=== PATIENT | male | born 1960 | race Caucasian/White ===

== ENCOUNTER 2016-09-14 11:10 | Inpatient (IN) | payer OTHER ==
[~2016-09-14] VITALS: Ht 182.9 cm; Wt 112.3 kg
[2016-09-14] VITALS (14 sets, daily range): BP systolic 92–159; BP diastolic 47–79; PULSE 72–126; RESP 16–17; TEMP 98–99.5; O2SAT 99–100
[~2016-09-14 11:10] MED LIST: APIDINJ SQ; Blood Pressure PO; Cholesterol PO; GLUC1000 PO; LANTUS2P SC
[2016-09-14] MEDS: ETOMIDATE 40 MG/20 ML VIAL ONE ×2 (11:15→11:34)
[2016-09-14] MEDS ORDERED: SUCCINYLCHOLINE CHLORIDE 200 MG/10 ML VIAL ONE (11:15)
[2016-09-14] MEDS ORDERED: PROPOFOL 500 MG/50 ML INJ 50 ML ONE (11:22)
[2016-09-14] MEDS ORDERED: ASPIRIN 81 MG CHEW TAB OG-TUBE STA (11:31)
[2016-09-14] MEDS ORDERED: HEPARIN SODIUM - IV 10,000 UNITS/10 ML VIAL IV STA (11:31)
[2016-09-14] MEDS ORDERED: HEPARIN-NS/PF INJ 500 ML ONE (11:38)
[2016-09-14] MEDS ORDERED: SUCCINYLCHOLINE CHLORIDE 200 MG/10 ML VIAL IV PUSH ONE (11:45)
[2016-09-14] MEDS ORDERED: PROPOFOL 1000 MG/100 ML INJ 100 ML IV SCH (11:45)
[2016-09-14 11:53] LABS: I-STAT POTASSIUM 3.7 MMOL/L (3.5-4.9); I-STAT SODIUM 137 MMOL/L (138-146)
[2016-09-14 11:54] LABS: AUTOMATED NEUTROPHIL # 11.5 TH/MM3 (1.8-7.7); BASOPHIL # 0.1 TH/MM3 (0-0.2); BASOPHIL % 0.5 % (0.0-2.0); EOSINOPHIL # 0.4 TH/MM3 (0-0.4); EOSINOPHIL % 2.3 % (0.0-4.0); HEMO FLAGS DIFF FINAL; LYMPH % 20.7 % (9.0-44.0); LYMPHOCYTE # 3.7 TH/MM3 (1.0-4.8); MEAN CELL VOLUME 82.1 FL (80.0-100.0); MEAN CORPUSCULAR HEMOGLOBIN 27.4 PG (27.0-34.0); MEAN CORPUSCULAR HGB CONC 33.4 % (32.0-36.0); MONO % 11.7 % (0.0-8.0); NEUT % 64.8 % (16.0-70.0); PLATELET COUNT 264 TH/MM3 (150-450); RED BLOOD COUNT 4.51 MIL/MM3 (4.50-5.90); RED CELL DISTRIBUTION WIDTH 19.8 % (11.6-17.2); WHITE BLOOD COUNT 17.7 TH/MM3 (4.0-11.0)
--- NOTE | 2016-09-14 11:59 | RADRPT ---
EXAM DATE/TIME: 09/14/2016 11:40 [facility] COMPARISON: No previous studies available for comparison. INDICATIONS : Stemi-alert. MEDICAL HISTORY : Unobtainable. SURGICAL HISTORY : Unobtainable. ENCOUNTER: Initial ACUITY: 1 day PAIN SCORE: Non-responsive. LOCATION: Bilateral chest FINDINGS: ET tube terminating above the ap a nasogastric tube is in the midline into the stomach. Hypoaerat ion is appreciated with a suggestion of left perihilar prominent bronchovascular markings CONCLUSION: . ET tube above the ap . Suggestion of prominent left perihilar bronchovascular markings particularly retrocardiac which cou ld represent minimal infiltrate or atelectasis. Vasquez Gonzalez MD on September 14, 2016 at 11:56 Board Certified Radiologist. This report was verified electronically.
--- NOTE | 2016-09-14 12:03 | RADRPT ---
EXAM DATE/TIME: 09/14/2016 11:52 [facility] COMPARISON: No previous studies available for comparison. INDICATIONS : Post fall,post CPR,now patient is combative. RADIATION DOSE: 43.15 CTDIvol (mGy) MEDICAL HISTORY : Unable to obtain SURGICAL HISTORY : Unable to obtain ENCOUNTER: Initial ACUITY: 1 day PAIN SCALE: Non-responsive LOCATION: cranial TECHNIQUE: Multiple contiguous axial images were obtained of the head. Using automated exposure control and adj ustment of the mA and/or kV according to patient size, radiation dose was kept as low as reasonably a chievable to obtain optimal diagnostic quality images. FINDINGS: CEREBRUM: The ventricles are normal for age. No evidence of midline shift, mass lesion, hemorrhage or acute in farction. No extra-axial fluid collections are seen. POSTERIOR FOSSA: The cerebellum and brainstem are intact. The 4th ventricle is midline. The cerebellopontine angle i s unremarkable. EXTRACRANIAL: The visualized portion of the orbits is intact. SKULL: The calvaria is intact. No evidence of skull fracture. CONCLUSION: Normal examination. Vasquez Gonzalez MD on September 14, 2016 at 12:01 Board Certified Radiologist. This report was verified electronically.
[2016-09-14 12:04] LABS: APTT (PATIENT) 24.5 SEC (24.3-30.1); PROTHROMBIN TIME - PATIENT 11.1 SEC (9.8-11.6)
[2016-09-14 12:10] LABS: MAGNESIUM 2.1 MG/DL (1.5-2.5)
[2016-09-14 12:13] LABS: CREATINE KINASE 136 U/L (39-308)
--- NOTE | 2016-09-14 12:15 | PD ---
HPI Chief Complaint: Code Blue Time Seen by Provider: 11:28 Travel History International Travel<30 days: No Contact w/Intl Traveler<30days: No Traveled to known affect area: No History of Present Illness HPI 56yo M with PMH of DM, CHF was brought in by [facility] s/p vfib arrest. As per [facility] , pt was at work and they heard him face forward. Pt loses pulses and CPR was initiated. [facility] continued CPR when they got there and placed him on monitor which showed vfib so they defibrillated him and obtained ROSC. Pt was given etomidate and ativan because he was starting to be combative but did not have an airway. Pt moving all extremities but not speaking and has blood on his face. Pt given succinylcholine and intubated emergently. Pt had EKG from [facility] that showed ST segment elevation V1, V2. ST depression II, V4-V6. Repeat EKG in the ED showed ST segment elevation III, aVF. ST depression V5-V6. PVC. PFSH Past Medical History Medical History: Unable to Obtain Tetanus Vaccination: Unknown Past Surgical History Surgical History: Unable to Obtain Social History Alcohol Use: No (UNABLE TO OBTAIN ) Tobacco Use: No (UNABLE TO OBTAIN ) Substance Use: No (UNABLE TO OBTAIN ) Allergies-Medications (Allergen,Severity, Reaction): Coded Allergies: No Known Allergies (Unverified , 09/14/16) Reported Meds & Prescriptions Reported Meds & Active Scripts Active Active Prescriptions or Reported Medications Unobtainable Review of Systems ROS Limitations: Unresponsive Physical Exam Narrative GENERAL: Middle age male unresponsive. SKIN: Warm and dry. HEAD: Dry blood on face. EYES: Pupils 3mm and reactive bilaterally. ENT: No nasal bleeding or discharge. Mucous membranes pink and moist. NECK: Trachea midline. No JVD. CARDIOVASCULAR: Regular rate and rhythm. No murmur appreciated. RESPIRATORY: No accessory muscle use. Clear to auscultation. Breath sounds equal bilaterally. GASTROINTESTINAL: Abdomen soft, distended. MUSCULOSKELETAL: No obvious deformities. No clubbing. No cyanosis. No edema. NEUROLOGICAL: Unresponsive but moving all extremities. Data Data Last Documented VS Vital Signs Date Time Temp Pulse Resp B/P Pulse Ox O2 Delivery O2 Flow Rate FiO2 09/14/16 12:15 100 100 09/14/16 11:58 80 16 113/66 Auto-Vent Orders Etomidate Inj (Amidate Inj) (09/14/16 11:15) Succinylcholine Inj (Quelicin Inj) (09/14/16 11:15) Propofol 500 Mg/50 Ml Inj (Diprivan 500 (09/14/16 11:22) Chest, Single Ap (09/14/16 ) Troponin I (09/14/16 11:31) Ckmb (Isoenzyme) Profile (09/14/16 11:31) Complete Blood Count With Diff (09/14/16 11:31) I-Stat Profile (09/14/16 11:31) I-Stat Creatinine (09/14/16 11:31) Calcium (09/14/16 11:31) Magnesium (Mg) (09/14/16 11:31) Prothrombin Time / Inr (Pt) (09/14/16 11:31) Act Partial Throm Time (Ptt) (09/14/16 11:31) Oxygen Administration (09/14/16 11:31) Iv Access Insert/Monitor (09/14/16 11:31) Oximetry (09/14/16 11:31) Aspirin Chew (Aspirin Chew) (09/14/16 11:31) Heparin Inj (Heparin Inj) (09/14/16 11:31) Heparin-Ns/Pf Inj (Heparin-Ns/Pf Inj) (09/14/16 11:38) Restraints Non-Violent KULWINDER.Q3H (09/14/16 11:38) Propofol 1000 Mg/100 Ml Inj (Diprivan 10 (09/14/16 11:45) ^ Infusion (09/14/16 11:38) RASS (09/14/16 11:38) Neurological Rass Scale KULWINDER.Q2H (09/14/16 11:38) Succinylcholine Inj (Quelicin Inj) (09/14/16 11:45) Ct Brain W/O Iv Contrast(Rout) (09/14/16 ) Ct Facial Bones W/O Iv Cont (09/14/16 ) Ct Cerv Spine W/O Contrast (09/14/16 ) Phenyleph/Ns 1000 Mcg/10ml Syr (Neosynep (09/14/16 12:16) Bivalirudin Inj (Angiomax Inj) (09/14/16 12:22) Admit Order (Ed Use Only) (09/14/16 12:23) CKMB (09/14/16 11:30) CKMB% (09/14/16 11:30) Labs Laboratory Tests Test 09/14/16 11:30 White Blood Count 17.7 TH/MM3 Red Blood Count 4.51 MIL/MM3 Hemoglobin 12.3 GM/DL Bedside Hemoglobin 12.6 G/DL Hematocrit 37.0 % Bedside Hematocrit 37.0 % Mean Corpuscular Volume 82.1 FL Mean Corpuscular Hemoglobin 27.4 PG Mean Corpuscular Hemoglobin 33.4 % Concent Red Cell Distribution Width 19.8 % Platelet Count 264 TH/MM3 Mean Platelet Volume 8.6 FL Neutrophils (%) (Auto) 64.8 % Lymphocytes (%) (Auto) 20.7 % Monocytes (%) (Auto) 11.7 % Eosinophils (%) (Auto) 2.3 % Basophils (%) (Auto) 0.5 % Neutrophils # (Auto) 11.5 TH/MM3 Lymphocytes # (Auto) 3.7 TH/MM3 Monocytes # (Auto) 2.1 TH/MM3 Eosinophils # (Auto) 0.4 TH/MM3 Basophils # (Auto) 0.1 TH/MM3 CBC Comment DIFF FINAL Differential Comment Prothrombin Time 11.1 SEC Prothromb Time International 1.0 RATIO Ratio Activated Partial 24.5 SEC Thromboplast Time Bedside Sodium 137 MMOL/L Bedside Potassium 3.7 MMOL/L Bedside Chloride 95 MMOL/L Bedside Blood Urea Nitrogen 27 MG/DL Bedside Creatinine 1.4 MG/DL Bedside Glucose 201 MG/DL Calcium Level 8.6 MG/DL Magnesium Level 2.1 MG/DL Total Creatine Kinase 136 U/L Creatine Kinase MB 1.5 NG/ML Troponin I 1.18 NG/ML MDM Medical Decision Making Medical Screen Exam Complete: Yes Emergency Medical Condition: Yes Interpretation(s) Last Impressions Maxillofacial CT 09/14/16 0000 Signed Impressions: Service Date/Time: Wednesday, September 14, 2016 11:52 - CONCLUSION: No acute bony injury Vasquez Gonzalez MD Head CT 09/14/16 0000 Signed Impressions: Service Date/Time: Wednesday, September 14, 2016 11:52 - CONCLUSION: Normal examination. Vasquez Gonzalez MD Chest X-Ray 09/14/16 0000 Signed Impressions: Service Date/Time: Wednesday, September 14, 2016 11:40 - CONCLUSION: . ET tube above the ap . Suggestion of prominent left perihilar bronchovascular markings particularly retrocardiac which could represent minimal infiltrate or atelectasis. Vasquez Gonzalez MD Cervical Spine CT 09/14/16 0000 Signed Impressions: Service Date/Time: Wednesday, September 14, 2016 11:52 - CONCLUSION: Degenerative change. No acute bony injury. Vasquez Gonzalez MD Differential Diagnosis Acute NC vs. ICH vs. PE Narrative Course Middle age male s/p vfib arrest and defibrillation x1 in the field was emergently intubated in the ED. Pt had ST elevation in V1, V2 in [facility]'s EKG and ST elevation III and aVF here in ED. Discussed with Dr. Noble and STEMI called. Heparin 7000 units IV ordered and aspirin ordered OG. Pt was pulseless for less than 5 minutes as per [facility] and did not received any medication such as epinephrine. 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 I discussed with pt's Mrs. Yoselin Lin [phone]. She is in [facility] and does not know pt's history besides DM, CHF. She does not know his doctor or his medications. CT brain, cspine, maxillofacial negative. Pt transported emergently to cardiac lab[facility] after obtaining CT scans. Critical Care Narrative Aggregate critical care time was 40 minutes. Time to perform other separately billable procedures was not included in the critical care time. My time did not include minutes spent treating any other patients simultaneously or on activities that did not directly contribute to the patient's treatment. The services I provided to this patient were to treat and/or prevent clinically significant deterioration that could result in: cardiovascular collapse or . I provided critical care services requiring my management, as noted below: Chart data review, documentation time, medication orders and management, vital sign assessments/reviewing monitor data, ordering and reviewing lab tests, ordering and interpreting/reviewing x-rays and diagnostic studies, care of the patient and discussion of the patient with the admitting physicians. Procedures Procedure Narrative The patient was put in optimal position for the procedure. Rapid sequence intubation was initiated by me using 150 milligrams of succinylcholine IV. Pt had just received etomidate 20mg IV by [facility]. The patient was intubated with a 8.0 cuffed endotracheal tube. Tube placement was confirmed by visualization of the tube and balloon passing through the cords, capnometry and subsequent chest x-ray. Breath sounds were equal and well aerated bilaterally postintubation. No breath sounds over stomach. Patient tolerated procedure well. Diagnosis Primary Impression: STEMI (ST elevation myocardial infarction) Qualified Code: I21.3 - ST elevation myocardial infarction (STEMI), unspecified artery Additional Impression: Cardiac arrest Admitting Information Admitting Physician Requests: Admit Scripts Unable to Obtain Active Prescriptions or Reported Meds Carola Uriostegui DO Sep 14, 2016 12:15
[2016-09-14] MEDS ORDERED: PHENYLEPH/NS 1000 MCG/10 ML SYR ONE (12:16)
--- NOTE | 2016-09-14 12:21 | RADRPT ---
EXAM DATE/TIME: 09/14/2016 11:52 [facility] COMPARISON: No previous studies available for comparison. INDICATIONS : Post fall,Post CPR,now patient is compative. RADIATION DOSE: 64.50 CTDIvol (mGy) MEDICAL HISTORY : Unable to obtain SURGICAL HISTORY : Unable to obtain ENCOUNTER: Initial ACUITY: 1 day PAIN SCORE: Non-responsive LOCATION: facial TECHNIQUE: Volumetric scanning of the facial bones was performed. Using automated exposure control and adjustme nt of the mA and/or kV according to patient size, radiation dose was kept as low as reasonably achiev able to obtain optimal diagnostic quality images. FINDINGS: ORBITS: The orbital and infraorbital osseous structures are intact. The retroconal structures have a normal configuration. No radiopaque foreign bodies are seen. NASAL BONE: The nasal bone and maxillary spine are intact ZYGOMATIC ARCHES: Symmetric without evidence of fracture. SINUSES: The maxillary, ethmoid and frontal sinuses are intact. No air-fluid levels seen. NASAL CAVITY: The nasal septum is intact and midline. The lacrimal ducts are intact. SOFT TISSUES: No radiopaque foreign bodies seen. No soft-tissue swelling is seen. ET tube and oral gastric tube in place INTRACRANIAL: No intracranial air seen. CRIBIFORM PLATE: Grossly intact. CONCLUSION: No acute bony injury Vasquez Gonzalez MD on September 14, 2016 at 12:18 Board Certified Radiologist. This report was verified electronically.
[2016-09-14] MEDS ORDERED: BIVALIRUDIN 250 MG VIAL ONE (12:22)
--- NOTE | 2016-09-14 12:24 | RADRPT ---
EXAM DATE/TIME: 09/14/2016 11:52 [facility] COMPARISON: No previous studies available for comparison. INDICATIONS : Post fall,post CPR,now patient is combative RADIATION DOSE: 25.37 CTDIvol (mGy) MEDICAL HISTORY : Unable to obtain SURGICAL HISTORY : Unable to obtain ENCOUNTER: Initial ACUITY: 1 day PAIN SCALE: Non-responsive LOCATION: neck TECHNIQUE: Volumetric scanning of the cervical spine was performed. Multiplanar reconstructions in the sagittal, coronal and oblique axial planes were performed. Using automated exposure control and adjustment o f the mA and/or kV according to patient size, radiation dose was kept as low as reasonably achievable to obtain optimal diagnostic quality images. FINDINGS: ET tube and nasogastric tube in place. Bony structures intact and normal in alignment no fracture, co mpression, subluxation, or destructive change. Odontoid is in normal relationship the arch of C1 with open and patent foramen normal upper thoracic spine. There is degenerative disc disease multilevel p articular anterior spurring C3-7 and uncovertebral hypertrophy osteophyte disc complex paracentral to left at C5-6. CONCLUSION: Degenerative change. No acute bony injury. Vasquez Gonzalez MD on September 14, 2016 at 12:19 Board Certified Radiologist. This report was verified electronically.
[2016-09-14] MEDS ORDERED: IOHEXOL 350 MG/ML 50 ML BTL (for Cath Lab) OTHER ONE (12:30)
[2016-09-14] MEDS ORDERED: IOHEXOL 350 MG/ML 100 ML BTL (for Cath Lab) OTHER ONE (12:30)
[2016-09-14] MEDS ORDERED: HEPARIN-D5W INJ 250 ML ONE (12:32)
[2016-09-14 12:44] LABS: CKMB 1.5 NG/ML (0.5-3.6)
[2016-09-14] MEDS ORDERED: BIVALIRUDIN INJ 250 MG in SODIUM CHLORIDE 0.9% INJ 50 ML IV SCH (12:47)
[2016-09-14] MEDS ORDERED: METOCLOPRAMIDE HCL 10 MG/2 ML VIAL IV PRN (13:00)
[2016-09-14] MEDS ORDERED: HEPARIN-D5W INJ 250 ML IV SCH (13:00)
[2016-09-14] MEDS ORDERED: LORazepam 2 MG/ML VIAL IV PRN (13:00)
[2016-09-14] MEDS ORDERED: SODIUM CHLOR 0.9% 250 ML INJ 250 ML IV PRN (13:00)
[2016-09-14] MEDS ORDERED: ATROPINE SULFATE 1 MG/ML VIAL IV PRN (13:00)
[2016-09-14] MEDS ORDERED: LIDOCAINE HCL 1% 50 ML VIAL INFIL PRN (13:00)
[2016-09-14] MEDS ORDERED: MISC INFORMATION XX ONE ×2 (13:00→15:45)
[2016-09-14] MEDS ORDERED: BACITRACIN OINT 0.9 GM PKT TOP ONE (13:00)
[2016-09-14] MEDS ORDERED: TICAGRELOR 90 MG TAB PO ONE (13:30)
[2016-09-14] MEDS ORDERED: ACETAMINOPHEN 325 MG TAB PO PRN (15:45)
[2016-09-14] MEDS ORDERED: CHLORHEXIDINE GLUCONATE 2 % 1 PACK (2 CLOTHS) TOP PRN (15:45)
[2016-09-14] MEDS ORDERED: DEXTROSE 50% IN WATER 50 ML VIAL(D50) IV PUSH PRN (15:45)
[2016-09-14] MEDS ORDERED: SENNOSIDES 8.6 MG TAB PO PRN (15:45)
[2016-09-14] MEDS ORDERED: MISCELLANEOUS NURSING INFORMATION XX SCH (15:45)
[2016-09-14] MEDS ORDERED: INSULIN REGULAR (IV INFUSION) 100 UNITS in SODIUM CHLORIDE 0.9% INJ 99 ML IV SCH (15:45)
[2016-09-14] MEDS ORDERED: RESP: ALBUTEROL 2.5 MG/IPRATROPIUM 0.5 MG NEB (PRN) INH (15:45)
[2016-09-14] MEDS ORDERED: SODIUM CHLORIDE 0.9% FLUSH 5 ML FLUSH IV FLUSH PRN (15:45)
[2016-09-14] MEDS ORDERED: fentaNYL DRIP 250 ML IV SCH (15:45)
--- NOTE | 2016-09-14 15:52 | PD.CONS ---
[facility] Service Critical Care Medicine Consult Requested By Dr. Noble Reason for Consult Care management Primary Care Physician Unknown History of Present Illness This is a 55 year old male. Date of admission 09/14/2016. Date of consultation 08/18/2016. Past medical history includes diabetes, hypertension, dyslipidemia, CHF and osteoarthritis. He presents to [facility] s/p vfib arrest. Patient was found fallen face first onto the ground. Patient was pulseless and CPR was initiated. ROSC at around 5 minutes. Patient was intubated at receiving 20 mg etomidate 1050 mg succinylcholine. Noted that Pt had ST elevation in V1, V2 in [facility]'s EKG and ST elevation III and aVF here in ED. Discussed with Dr. Noble and STEMI called. CT brain, cspine, maxillary facial ordered unremarkable. In cardio Lab, EF 20%. Left main 0%. LAD proximal 20%. Mid to distal 90%. Diagonal 0. Circumflex 95%. RCA 95%. Ramus 100%. PCI LAD with a YOAN of 3. Loaded with Brilinta 180 mg 1. Given Angiomax 15mL 1 in started at 35 mL an hour. Intra-aortic balloon pump placed at 1:1 with good augmentation around 130. Remains intubated Review of Systems ROS Limitations: Intubated Past Family Social History Allergies: Coded Allergies: No Known Allergies (Unverified , 09/14/16) Past Medical History Diabetes mellitus Hypertension Dyslipidemia Osteoarthritis Past Surgical History T&A Right foot toenail removal I&D scrotal abscess Reported Medications Lantus 80 units 3 times a day Apidra 80 units daily Metformin 1000 mg mouth twice a day Blood pressure medication unknown Lipid-lowering agent unknown Active Ordered Medications Reviewed in EMR Family History Unknown. Not documented Social History 2 beers a day. Unknown tobacco use. Unknown IV drug use. Physical Exam Vital Signs Vital Signs Date Time Temp Pulse Resp B/P Pulse Ox O2 Delivery O2 Flow Rate FiO2 09/14/16 15:23 100 50 09/14/16 15:19 100/66 09/14/16 15:19 100 09/14/16 15:19 75 09/14/16 15:19 100 Mechanical Ventilator 100 09/14/16 15:19 98.0 72 16 117/79 100 09/14/16 13:25 100 100 09/14/16 12:15 100 100 09/14/16 11:58 80 16 113/66 99 Auto-Vent 09/14/16 11:36 100 100 09/14/16 11:35 99 Auto-Vent 100 09/14/16 11:35 99 Auto-Vent 09/14/16 11:21 100 09/14/16 11:14 126 16 159/67 Physical Exam GENERAL: Middle-aged male, critically ill currently orotracheally intubated SKIN: Noted abrasions and nares, face. HEAD: Atraumatic. Normocephalic. EYES: Pupils equal and round about 3 mm bilaterally and reactive. No scleral icterus. No injection or drainage. ENT: Old blood surrounding nares. Mucous membranes pink and moist. NECK: Trachea midline. No JVD. CARDIOVASCULAR: Regular rate and rhythm. IABP counterpulsation RESPIRATORY: Clear to auscultation. Breath sounds equal bilaterally. GASTROINTESTINAL: Abdomen soft, distended. Hypoactive bowel sounds are appreciated.. Hepatic and splenic margins not palpable. MUSCULOSKELETAL: Extremities trace lower extremity edema. Balloon pump in right groin clean dry and intact. NEUROLOGICAL: Sedate on the ventilator on propofol drip. Laboratory Laboratory Tests Test 09/14/16 11:30 White Blood Count 17.7 Red Blood Count 4.51 Hemoglobin 12.3 Bedside Hemoglobin 12.6 Hematocrit 37.0 Bedside Hematocrit 37.0 Mean Corpuscular Volume 82.1 Mean Corpuscular Hemoglobin 27.4 Mean Corpuscular Hemoglobin 33.4 Concent Red Cell Distribution Width 19.8 Platelet Count 264 Mean Platelet Volume 8.6 Neutrophils (%) (Auto) 64.8 Lymphocytes (%) (Auto) 20.7 Monocytes (%) (Auto) 11.7 Eosinophils (%) (Auto) 2.3 Basophils (%) (Auto) 0.5 Neutrophils # (Auto) 11.5 Lymphocytes # (Auto) 3.7 Monocytes # (Auto) 2.1 Eosinophils # (Auto) 0.4 Basophils # (Auto) 0.1 CBC Comment DIFF FINAL Differential Comment Prothrombin Time 11.1 Prothromb Time International 1.0 Ratio Activated Partial 24.5 Thromboplast Time Bedside Sodium 137 Bedside Potassium 3.7 Bedside Chloride 95 Bedside Blood Urea Nitrogen 27 Bedside Creatinine 1.4 Bedside Glucose 201 Calcium Level 8.6 Magnesium Level 2.1 Total Creatine Kinase 136 Creatine Kinase MB 1.5 Troponin I 1.18 Result Diagram: 09/14/16 1130 Imaging Last Impressions Maxillofacial CT 09/14/16 0000 Signed Impressions: Service Date/Time: Wednesday, September 14, 2016 11:52 - CONCLUSION: No acute bony injury Vasquez Gonzalez MD Head CT 09/14/16 0000 Signed Impressions: Service Date/Time: Wednesday, September 14, 2016 11:52 - CONCLUSION: Normal examination. Vasquez Gonzalez MD Chest X-Ray 09/14/16 0000 Signed Impressions: Service Date/Time: Wednesday, September 14, 2016 11:40 - CONCLUSION: . ET tube above the ap . Suggestion of prominent left perihilar bronchovascular markings particularly retrocardiac which could represent minimal infiltrate or atelectasis. Vasquez Gonzalez MD Cervical Spine CT 09/14/16 0000 Signed Impressions: Service Date/Time: Wednesday, September 14, 2016 11:52 - CONCLUSION: Degenerative change. No acute bony injury. Vasquez Gonzalez MD Assessment and Plan Assessment and Plan Neuro/Psych: EtOH Currently sedated with propofol/fentanyl drips for sedation/analgesia while intubated Goal RASS -2 Daily sedation vacation when okay with cardiology Acetaminophen for fever Thiamine 100 mg by mouth daily Monitor for DTs CV: Cardiogenic shock Coronary artery disease History of hypertension Dyslipidemia Systolic heart failure Cardiac catheterization EF 20%. Stent placed to mid LAD/bare-metal stent Left main 0%. Distal LAD 90%. Circumflex 95%. RCA 95%. Ramus 100%. IABP 1:1 good augmentation Currently on aspirin 81 mg daily and Brilinta 90 mg by mouth twice a day. Continue Coreg 3.125 mg by mouth twice a day for hypertension Continue Lipitor 10 mg by mouth daily dyslipidemia Altace 2.5 mg by mouth daily for hypertension added. Resp: Acute respiratory failure ACV 16/500/5/100 Ventilator bundle Bronchodilator therapy every 6 hours and as needed Spontaneous breathing trials when indicated GI: Patient is currently nothing by mouth Protonix for GI prophylaxis Colace/as needed Senokot for bowel regimen : History scrotal abscess Lara for accurate I's and O's in critically ill patient Endo: DM Hyperglycemia Insulin drip algorithm 1. Goal maintain tight euglycemia At home on Lantus 80 units 3 times a day, Apidra 8 0units daily metformin 1000 g twice a day. Check hemoglobin A1c Renal: Acute kidney injury Crowding currently 1.4. Recheck BMP in a.m. Accurate I's and O/ Monitor urine output closely Heme: Leukocytosis Anemia Monitor CBC. Likely stress type reaction ID: Monitor for infection FEN: Replace electrolytes as clinically indicated MSK: Osteoarthritis PT evaluate and treat Access - Utilize peripheral IV. Central line if indicated Prophylaxis - GI - Protonix - DVT - heparin Critical Care: The total critical care time was 65 minutes. Time to perform other separately billable procedures was not included in the critical care time. Code Status Full code Discussed Condition With NIB INSPECTOR. Care plan discussed and all questions answered Mrs. Yoselin Lin [phone] Yung Guillermo MD Sep 14, 2016 15:52
[2016-09-14] MEDS: RESP: ALBUTEROL 2.5 MG/IPRATROPIUM 0.5 MG NEB (SCH) INH ×2 (16:00→22:17)
[2016-09-14] MEDS: PROPOFOL 1000 MG/100 ML INJ 100 ML IV SCH ×2 (17:16→22:46)
[2016-09-14] MEDS: THIAMINE INJ 100 MG in SODIUM CHLORIDE 0.9% INJ 100 ML IV SCH (17:16)
--- NOTE | 2016-09-14 17:17 | EC ---
Study Study Date:09/14/2016 STUDY CONCLUSIONS SUMMARY - Left ventricle: The cavity size was mildly dilated. Wall thickness was increased in a pattern of mild LVH. Systolic function was severely reduced by visual assessment. The estimated ejection fraction was in the range of 25% to 30%. Mild diffuse hypokinesis with regional variations. Doppler parameters are consistent with abnormal left ventricular relaxation (grade 1 diastolic dysfunction). - Mitral valve: Mild regurgitation. - Left atrium: The atrium was mildly dilated. - Right atrium: The atrium was mildly dilated. - Tricuspid valve: Mild regurgitation. If LV function is below 40, please consider prescribing an ACEI or ARB or document rationale for non-use. PROCEDURE DATA STUDY STATUS: Elective. Procedure: Transthoracic echocardiography. Image quality was good. Scanning was performed from the parasternal, apical, and subcostal acoustic windows. Study completion: The patient tolerated the procedure well. Transthoracic echocardiography. M-mode, complete 2D, complete spectral Doppler, and color Doppler. Patient status: Inpatient. CARDIAC ANATOMY LEFT VENTRICLE: The cavity size was mildly dilated. Wall thickness was increased in a pattern of mild LVH. Systolic function was severely reduced by visual assessment. The estimated ejection fraction was in the range of 25% to 30%. Mild diffuse hypokinesis with regional variations. Doppler parameters are consistent with abnormal left ventricular relaxation (grade 1 diastolic dysfunction). AORTIC VALVE: Trileaflet; normal thickness leaflets. Doppler: Transvalvular velocity was within the normal range. There was no stenosis. No regurgitation. AORTA: Aortic root: The aortic root was normal in size. MITRAL VALVE: Structurally normal valve. Doppler: Transvalvular velocity was within the normal range. There was no evidence for stenosis. Mild regurgitation. Peak gradient: 4mm Hg (D). LEFT ATRIUM: The atrium was mildly dilated. RIGHT VENTRICLE: The cavity size was normal. Wall thickness was normal. PULMONIC VALVE: Doppler: Transvalvular velocity was within the normal range. There was no evidence for stenosis. No regurgitation. TRICUSPID VALVE: Structurally normal valve. Doppler: Transvalvular velocity was within the normal range. Mild regurgitation. PULMONARY ARTERY: The main pulmonary artery was normal-sized. Systolic pressure was within the normal range. RIGHT ATRIUM: The atrium was mildly dilated. PERICARDIUM: There was no pericardial effusion. SYSTEMIC VEINS: Inferior vena cava: The vessel was normal in size. BASIC MEASUREMENTS ADULT Normal Left ventricle LV internal dimension, ED, chordal level, 49.8 mm 43-52 PLAX LV internal dimension, ES, chordal level, *42.7 mm 23-38 PLAX Fractional shortening, chordal level, PLAX *14 % >29 LV posterior wall thickness, ED 7.52 mm IVS/LVPW ratio, ED *2.13 <1.3 Ventricular septum Septal thickness, ED 16 mm Left atrium Anterior-posterior dimension 38 mm DOPPLER MEASUREMENTS ADULT Normal Mitral valve Peak E-wave velocity 103 cm/s Peak A-wave velocity 82.8 cm/s Peak gradient, D 4 mm Hg Peak E/A ratio 1.2 Tricuspid valve Regurgitant peak velocity 243 cm/s Peak RV-RA gradient, S 24 mm Hg Maximal regurgitant velocity 243 cm/s LEGEND: Mean values are shown as u=mean value. Asterisk (*) ag values outside specified normal range. Prepared and signed by Francisco Noble [id number]
[2016-09-14] MEDS: SODIUM CHLOR 0.9% 1000 ML INJ 1,000 ML IV SCH (17:18)
[2016-09-14] MEDS: ARTIFICIAL TEARS OPTH SOLN 15 ML BTL EACH EYE SCH (18:00)
[2016-09-14 18:01] LABS: BLOOD GAS BASE EXCESS 3.2 mmol/L (-2-2); BLOOD GAS CARBOXYHEMOGLOBIN 1.4 % (0-4); BLOOD GAS HCO3 27 mmol/L (22-26); BLOOD GAS METHEMOGLOBIN 1.3 % (0-2); BLOOD GAS O2 HGB SATURATION 96 % (90-100); BLOOD GAS OXYGEN CONTENT 16.9 Vol % (12.0-20.0); BLOOD GAS PCO2 37 mmHg (38-42); BLOOD GAS PO2 131 mmHg (61-120); BLOOD GAS TOTAL HGB 12.3 G/DL (12.0-16.0); CRITICAL VALUE NO; DRAW SITE RT RADIAL; FIO2 50 %; NUMBER OF ARTERIAL PUNCTURES 1; OXYGEN DEVICE VENTILATOR; STAT NO; TEMP CORR TO 98.6; VENT SETTINGS AC 500/16/+5PEEP
--- NOTE | 2016-09-14 20:02 | MB ---
cc: EMERALD WHITE DATE OF CONSULTATION 09/14/2016 All the information is obtained from chart records as the patient is intubated and sedated. HISTORY OF PRESENT ILLNESS A 56-year-old gentleman history of diabetes, CHF who came in with an apparent ventricular fibrillation arrest. Apparently he was at work and his coworkers found him face down. CPR was initiated. [facility] arrived and saw he was in ventricular fibrillation. He was defibrillated once. ST-elevation was noted on electrocardiogram anteriorly and a STEMI was initiated. PAST MEDICAL HISTORY Unobtainable. SOCIAL HISTORY Unobtainable. ALLERGIES NO KNOWN DRUG ALLERGIES. MEDICATIONS See med reconciliation. REVIEW OF SYSTEMS Unresponsive. PHYSICAL EXAMINATION VITAL SIGNS: Pulse 80. Initial blood pressure 70/50 mmHg. GENERAL: Intubated, sedated. HEENT: Exam shows pupils are dilated. NECK: No jugular venous distension. CARDIOVASCULAR: Regular rate and rhythm without murmurs, rubs, gallops. ABDOMEN: Nontender. Nondistended. Good bowel sounds. No hepatosplenomegaly. EXTREMITIES: Show no clubbing, cyanosis or edema. Good peripheral pulses. NEUROLOGICAL: Cranial nerves intact. Motor and sensory grossly intact. ASSESSMENT 1. Ventricular fibrillation arrest. 2. ST-elevation SD. 3. Respiratory arrest, intubation. PLAN The patient went to CT scan which did not show any trauma. Apparently he is moving extremities. He is sedated. It appears he would have a reasonable neurologic recovery. Will be taken emergently to the cardiac catheterization lab for attempted revascularization. MD PALLAVI Christiansen/SAI /12:57 PM /7:55 PM [facility]
[2016-09-14 20:12] LABS: BLOOD GAS BASE EXCESS -1.2 mmol/L (-2-2); BLOOD GAS CARBOXYHEMOGLOBIN 1.5 % (0-4); BLOOD GAS HCO3 23 mmol/L (22-26); BLOOD GAS METHEMOGLOBIN 1.4 % (0-2); BLOOD GAS O2 HGB SATURATION 87 % (90-100); BLOOD GAS OXYGEN CONTENT 15.6 Vol % (12.0-20.0); BLOOD GAS PCO2 39 mmHg (38-42); BLOOD GAS PO2 60 mmHg (61-120); BLOOD GAS TOTAL HGB 12.8 G/DL (12.0-16.0); CRITICAL VALUE YES; TEMP CORR TO 98.6
[2016-09-14 20:13] LABS: DRAW SITE ART LINE; FIO2 100 %; OXYGEN DEVICE VENTILATOR; STAT YES; VENT SETTINGS PRVC/AC
[2016-09-14 20:21] LABS: APTT (PATIENT) 37.8 SEC (24.3-30.1)
--- NOTE | 2016-09-14 20:28 | MA ---
cc: EMERALD WHITE DATE 09/14/2016 PROCEDURES PERFORMED 1. Fluoroscopy with interpretation. 2. Coronary angiography. 3. Left heart catheterization. 4. Left ventriculography. 5. Percutaneous intervention with bare-metal stent to the mid left anterior descending coronary artery. The patient was brought emergently and consent, two physician consent was obtained. The right groin was prepped and draped in sterile fashion. Right groin was anesthetized with 2% lidocaine. The right common femoral artery was cannulated with a 6 Cypriot 11 cm sheath was placed out difficulty. HEMODYNAMICS Initial invasive hemodynamics measured at 70/50 mmHg. CORONARY ANGIOGRAPHY The left coronary circulation was selectively engaged with a 6-Cypriot XB LAD 3.5 guide catheter. Right coronary circulation was selectively engaged with a 6-Cypriot JR-5 catheter. Angiography findings as follows. 1. Left main coronary with minor luminal irregularities. 2. Left anterior descending coronary moderate large size diagonal branch. Both the diagonal and proximal left anterior descending arteries have minor luminal irregularities. There is a tubular stenosis in the mid segment. There is mild luminal irregularities beyond that. Active plaque appears to be present. 3. There is a very small ramus intermedius branch that also appears to be occluded with questionable chronicity. The circumflex gives rise to the marginal branch. The distal circumflex just beyond the takeoff of the marginal branch is subtotally occluded 95%, YOAN II flow distally with a codominant system left-sided PDA branch. 4. Right coronary gives rise to a large acute marginal branch with 80% discrete stenosis. The proximal circumflex has 75% stenosis throughout. The mid segment has 95% stenosis throughout. The posterior descending branch is smaller caliber size. PERCUTANEOUS INTERVENTION Given the anterior ST elevation and acute event, we elected to proceed with revascularization of the left anterior descending given that the other stenosis leaves a smaller caliber size vessels. The left coronary circulation was selectively engaged 6-Cypriot XB LAD 3.5 guide catheter. 0.014 inch 180 cm [employer] run-through wire was navigated down the distal left anterior descending coronary branch. A 2.5 x 15 mm RX Euphora balloon was deployed in the mid segment to 10 atmospheres. Repeat angiography still showed severe residual stenosis. A 3.0 x 50 mm RX Integrity bare metal stent was deployed in the mid segment. Repeat angiography showed no residual stenosis, YOAN III flow. Given the patient's hypotension, cardiogenic shock we decided to place intra-aortic balloon pump. INTRA-AORTIC BALLOON PUMP PLACEMENT The sheath was exchanged for a balloon pump sheath. A 50 ml Datascope intra-aortic balloon pump was then advanced into the thoracic aorta just beyond the takeoff of the left subclavian artery. Appropriate position was confirmed. Balloon pump was initiated 1:1 inflations. LEFT HEART CATHETERIZATION A 6-Cypriot angled pigtail catheter was advanced across the aortic valve without difficulty. Intraoperative hemodynamics at 85/2 mm. The left end-diastolic pressure 8 mmHg. No aortic stenosis by transaortic valve or pullback gradient. LEFT VENTRICULOGRAPHY Left ventriculography was performed in the right anterior oblique view using a 30 mL contrast injection with good opacification. Left ventricular ejection fraction estimated at 20-25% with global hypokinesis. CONCLUSION 1. Severe multivessel coronary artery disease with most likely culprit appearing to be the mid left anterior descending coronary artery. 2. Successful percutaneous intervention with bare metal stent to the mid left anterior descending coronary artery. 3. Successful ____ placement of intra-aortic balloon pump. 4. Severely reduced global left ventricular systolic function. 5. Normal left-sided filling pressures. PLAN Intra-aortic balloon pump was placed secondary to hypotension, reduced ejection fraction in the setting of ST-elevation AR. Hopefully he will have some improvement in his contractility. We will have to monitor closely for neurologic recovery in addition to hemodynamic recovery. Depending on his hospital course we may ultimately elect for staged intervention, we will have to see how his recovery comes along. He will be on aspirin and Brilinta. We will initiate low-dose heparin for the intraaortic balloon pump and will try to wean that as soon as hemodynamics have improved. MD PALLAVI Christiansen/SAI /1:01 PM /8:01 PM [facility]
[2016-09-14] MEDS ORDERED: AMIODARONE 150 MG/D5W 97 ML BOLUS 10 MINUTES IV ONE ×2 (20:45)
--- NOTE | 2016-09-14 20:51 | PD.PROCEDR ---
Procedure Note Procedure Central Venous Catheter (CVC, Central Line) Placement Date: <09/14/16_> Time: <___> Indication: Hemodynamic monitoring/Intravenous access A time-out was completed verifying correct patient, procedure, site, positioning , and special equipment if applicable. The patient was placed in a dependent position appropriate for central line placement based on the vein to be cannulated. The patients <right/< neck/> was prepped and draped in sterile fashion. 1% Lidocaine was used to anesthetize the surrounding skin area. A triple lumen <9-Danish> Cordis catheter was introduced into the the internal jugular vein> using the Seldinger technique <and under ultrasound guidance>. The catheter was threaded smoothly over the guide wire and appropriate blood return was obtained. Each lumen of the catheter was evacuated of air and flushed with sterile saline. The catheter was then sutured in place to the skin and a sterile dressing applied. Perfusion to the extremity distal to the point of catheter insertion was checked and found to be adequate. Estimated Blood Loss: <_5ml___> The patient tolerated the procedure well and there were no complications Torito Hubbard MD Sep 14, 2016 20:51
--- NOTE | 2016-09-14 20:55 | PD.PROCEDR ---
Procedure Note Procedure ARTERIAL LINE (A-Line) PLACEMENT Date: <__> Time: <___> Indication: Hemodynamic monitoring A time-out was completed verifying correct patient, procedure, site, positioning , and special equipment if applicable. Allens test was performed to ensure adequate perfusion. The patients <righ arm was prepped and draped in sterile fashion. 1% Lidocaine was used to anesthetize the area. A <18G/20G> Arrow arterial line was introduced into the <brachial> artery. The catheter was threaded over the guide wire and the needle was removed with appropriate pulsatile blood return. The catheter was then sutured in place to the skin and a sterile dressing applied. Perfusion to the extremity distal to the point of catheter insertion was checked and found to be adequate. <Attending/Resident> was present for the entire procedure. Estimated Blood Loss: <_1ml__> The patient tolerated the procedure well and there were no complications. Torito Hubbard MD Sep 14, 2016 20:55
--- NOTE | 2016-09-14 20:59 | HHI.CCPN ---
Subjective Remarks/Hospital Course Cardiopulmonary resuscitation Procedure at about 19:40 Patient suffered from cardiac arrest due to V Fib. One shock of 200 J was delivered with succesfull return of spontaneous circulation. Dt. Minor notified by RN and bolus of amiodarone aloderd. Objective Vital Signs Date Time Temp Pulse Resp B/P Pulse Ox O2 Delivery O2 Flow Rate FiO2 09/14/16 18:02 100 40 09/14/16 15:19 100/66 09/14/16 15:19 75 09/14/16 15:19 Mechanical Ventilator 09/14/16 15:19 98.0 16 Result Diagram: 09/14/16 1130 Other Results Laboratory Tests Test 09/14/16 09/14/16 17:47 20:00 Blood Gas Puncture Site RT RADIAL ART LINE Blood Gas Patient Temperature 98.6 98.6 Blood Gas HCO3 27 mmol/L 23 mmol/L (22-26) (22-26) Blood Gas Base Excess 3.2 mmol/L -1.2 mmol/L (-2-2) (-2-2) Blood Gas Oxygen Saturation 96 % (90-100) 87 % (90-100) Arterial Blood pH 7.47 7.39 (7.380-7.420) (7.380-7.420) Arterial Blood Partial 37 mmHg (38-42) 39 mmHg (38-42) Pressure CO2 Arterial Blood Partial 131 mmHg 60 mmHg Pressure O2 (61-120) (61-120) Arterial Blood Oxygen Content 16.9 Vol % 15.6 Vol % (12.0-20.0) (12.0-20.0) Arterial Blood 1.4 % (0-4) 1.5 % (0-4) Carboxyhemoglobin Arterial Blood Methemoglobin 1.3 % (0-2) 1.4 % (0-2) Blood Gas Hemoglobin 12.3 G/DL 12.8 G/DL (12.0-16.0) (12.0-16.0) Oxygen Delivery Device VENTILATOR VENTILATOR Blood Gas Ventilator Setting AC PRVC/AC 500/16/+5PEEP Blood Gas Inspired Oxygen 50 % 100 % Imaging Last Impressions Maxillofacial CT 09/14/16 0000 Signed Impressions: Service Date/Time: Wednesday, September 14, 2016 11:52 - CONCLUSION: No acute bony injury Vasquez Gonzalez MD Head CT 09/14/16 0000 Signed Impressions: Service Date/Time: Wednesday, September 14, 2016 11:52 - CONCLUSION: Normal examination. Vasquez Gonzalez MD Chest X-Ray 09/14/16 0000 Signed Impressions: Service Date/Time: Wednesday, September 14, 2016 11:40 - CONCLUSION: . ET tube above the ap . Suggestion of prominent left perihilar bronchovascular markings particularly retrocardiac which could represent minimal infiltrate or atelectasis. Vasquez Gonzalez MD Cervical Spine CT 09/14/16 0000 Signed Impressions: Service Date/Time: Wednesday, September 14, 2016 11:52 - CONCLUSION: Degenerative change. No acute bony injury. Vasquez Gonzalez MD Objective Remarks GENERAL: Middle-aged male, critically ill currently orotracheally intubated SKIN: Noted abrasions and nares, face. HEAD: Atraumatic. Normocephalic. EYES: Pupils equal and round about 3 mm bilaterally and reactive. No scleral icterus. No injection or drainage. ENT: Old blood surrounding nares. Mucous membranes pink and moist. NECK: Trachea midline. No JVD. CARDIOVASCULAR: Regular rate and rhythm. IABP counterpulsation RESPIRATORY: Clear to auscultation. Breath sounds equal bilaterally. GASTROINTESTINAL: Abdomen soft, distended. Hypoactive bowel sounds are appreciated.. Hepatic and splenic margins not palpable. MUSCULOSKELETAL: Extremities trace lower extremity edema. Balloon pump in right groin clean dry and intact. NEUROLOGICAL: Sedate on the ventilator on propofol drip. A/P Assessment and Plan Neuro/Psych: EtOH Continue sedation with propofol/fentanyl drips for sedation/analgesia while intubated Goal RASS -2 Daily sedation vacation when okay with cardiology Acetaminophen when necessary for fever Thiamine 100 mg by mouth daily Monitor for DTs CV: Cardiogenic shock Coronary artery disease History of hypertension Dyslipidemia Systolic heart failure Cardiac catheterization EF 20%. Stent placed to mid LAD/bare-metal stent Left main 0%. Distal LAD 90%. Circumflex 95%. RCA 95%. Ramus 100%. IABP 1:1 good augmentation Currently on aspirin 81 mg daily and Brilinta 90 mg by mouth twice a day. Continue Coreg 3.125 mg by mouth twice a day for hypertension Continue Lipitor 10 mg by mouth daily dyslipidemia Altace 2.5 mg by mouth daily for hypertension added. Resp: Acute respiratory failure ACV 16/500/5/100 Ventilator bundle Bronchodilator therapy every 6 hours and as needed Spontaneous breathing trials when indicated GI: Start tube feeds Protonix for GI prophylaxis Colace/as needed Senokot for bowel regimen : History scrotal abscess Lara for strict I's and O's in critically ill patient Endo: DM Hyperglycemia Low-dose insulin sliding scale Goal maintain tight euglycemia At home on Lantus 80 units 3 times a day, Apidra 8 0units daily metformin 1000 g twice a day. Check hemoglobin A1c Renal: Acute kidney injury Crowding currently 1.4. Recheck BMP in a.m. Accurate I's and O/ Monitor urine output closely Heme: Leukocytosis Anemia Monitor CBC. Likely stress type reaction ID: Monitor for infection FEN: Replace electrolytes as clinically indicated MSK: Osteoarthritis PT evaluate and treat Access - Utilize peripheral IV. Central line if indicated Prophylaxis - GI - Protonix - DVT - heparin Critical Care: The total critical care time was 35 minutes. Time to perform other separately billable procedures was not included in the critical care time. Torito Hubbard MD Sep 14, 2016 20:59
[2016-09-14] MEDS: ATORVASTATIN 10 MG TAB PO SCH (21:00)
[2016-09-14] MEDS: DOCUSATE SODIUM 100 MG CAP PO SCH (21:00)
--- NOTE | 2016-09-14 21:51 | RADRPT ---
EXAM DATE/TIME: 09/14/2016 20:55 [facility] COMPARISON: CHEST SINGLE AP, September 14, 2016, 11:40. INDICATIONS : Central line placement. MEDICAL HISTORY : Myocardial infarction. SURGICAL HISTORY : None. ENCOUNTER: Initial ACUITY: 1 day PAIN SCORE: Non-responsive. LOCATION: Bilateral chest FINDINGS: A single view of the chest demonstrates endotracheal tube in satisfactory position. NG enters stomach . Right central line in superior vena cava. Mild basilar disease similar to September 14 exam from anitha ier today. CONCLUSION: 1. Support apparatus in satisfactory position. Mild basilar dependent airspace disease similar to obdulioa alannah from earlier today. Jose Spence MD on September 14, 2016 at 21:47 Board Certified Radiologist. This report was verified electronically.
[2016-09-14 22:30] LABS: AUTOMATED NEUTROPHIL # 15.9 TH/MM3 (1.8-7.7); BASOPHIL % 0.2 % (0.0-2.0); EOSINOPHIL # 0.3 TH/MM3 (0-0.4); EOSINOPHIL % 1.5 % (0.0-4.0); HEMATOCRIT 34.4 % (39.0-51.0); HEMO FLAGS DIFF FINAL; LYMPH % 4.9 % (9.0-44.0); LYMPHOCYTE # 0.9 TH/MM3 (1.0-4.8); MEAN CELL VOLUME 80.5 FL (80.0-100.0); MEAN CORPUSCULAR HEMOGLOBIN 27.5 PG (27.0-34.0); MEAN CORPUSCULAR HGB CONC 34.1 % (32.0-36.0); MONO % 8.3 % (0.0-8.0); NEUT % 85.1 % (16.0-70.0); PLATELET COUNT 243 TH/MM3 (150-450); RED BLOOD COUNT 4.27 MIL/MM3 (4.50-5.90); RED CELL DISTRIBUTION WIDTH 19.8 % (11.6-17.2); WHITE BLOOD COUNT 18.7 TH/MM3 (4.0-11.0)
[2016-09-14] MEDS: SODIUM CHLORIDE 0.9% FLUSH 5 ML FLUSH IV FLUSH SCH (22:47)
[2016-09-14] MEDS: PHENYLEPHRINE 40 MG/D5W 496 ML ADMIX IV SCH ×2 (22:49)
[2016-09-14 23:01] LABS: MAGNESIUM 1.8 MG/DL (1.5-2.5); POTASSIUM 3.8 MEQ/L (3.5-5.1)
[2016-09-14 23:02] LABS: BICARBONATE 28.3 MEQ/L (21.0-32.0)
[2016-09-14] MEDS ORDERED: POTASSIUM CL 40 MEQ/30 ML LIQ UDC PO ONE (23:45)
[2016-09-14] MEDS: MAGNESIUM SULFATE 1 GM PREMIX 100 ML IV SCH (23:52)
[2016-09-15] VITALS (14 sets, daily range): BP systolic 85–116; BP diastolic 47–58; PULSE 65–86; RESP 16–19; TEMP 97.8–99.8; O2SAT 95–100
[2016-09-15] MEDS: MAGNESIUM SULFATE 1 GM PREMIX 100 ML IV SCH (00:52)
[2016-09-15] MEDS: PROPOFOL 1000 MG/100 ML INJ 100 ML IV SCH ×4 (01:48→13:24)
[2016-09-15] MEDS: CHLORHEXIDINE GLUCONATE 2 % 1 PACK (2 CLOTHS) TOP SCH (04:00)
[2016-09-15] MEDS: RESP: ALBUTEROL 2.5 MG/IPRATROPIUM 0.5 MG NEB (SCH) INH ×4 (04:41→21:57)
[2016-09-15] MEDS: SODIUM CHLOR 0.9% 1000 ML INJ 1,000 ML IV SCH ×2 (04:51→15:45)
[2016-09-15] MEDS ORDERED: EPINEPHrine HCL (1:10,000) 1 MG/10 ML SYRINGE IV ONE (05:00)
[2016-09-15 05:14] LABS: APTT (PATIENT) 27.1 SEC (24.3-30.1)
[2016-09-15 05:16] LABS: AUTOMATED NEUTROPHIL # 11.7 TH/MM3 (1.8-7.7); BASOPHIL # 0.1 TH/MM3 (0-0.2); BASOPHIL % 0.5 % (0.0-2.0); EOSINOPHIL # 0.4 TH/MM3 (0-0.4); EOSINOPHIL % 2.7 % (0.0-4.0); HEMO FLAGS DIFF FINAL; LYMPH % 8.2 % (9.0-44.0); LYMPHOCYTE # 1.3 TH/MM3 (1.0-4.8); MEAN CELL VOLUME 81.3 FL (80.0-100.0); MEAN CORPUSCULAR HEMOGLOBIN 27.9 PG (27.0-34.0); MEAN CORPUSCULAR HGB CONC 34.4 % (32.0-36.0); MONO % 12.8 % (0.0-8.0); NEUT % 75.8 % (16.0-70.0); PLATELET COUNT 232 TH/MM3 (150-450); RED BLOOD COUNT 3.94 MIL/MM3 (4.50-5.90); RED CELL DISTRIBUTION WIDTH 20.4 % (11.6-17.2); WHITE BLOOD COUNT 15.4 TH/MM3 (4.0-11.0)
[2016-09-15 05:22] LABS: ALT (GPT) 32 U/L (12-78); ANION GAP 5 MEQ/L (5-15); AST (GOT) 28 U/L (15-37); BICARBONATE 27.6 MEQ/L (21.0-32.0); BLOOD UREA NITROGEN 21 MG/DL (7-18); CHLORIDE 105 MEQ/L (98-107); GLOMERULAR FILTRATION RATE 48 ML/MIN (>89); MAGNESIUM 2.4 MG/DL (1.5-2.5); POTASSIUM 4.4 MEQ/L (3.5-5.1); SODIUM (NA) 138 MEQ/L (136-145)
[2016-09-15 05:35] LABS: ALKALINE PHOSPHATASE 58 U/L (45-117); CREATINE KINASE 317 U/L (39-308); HDL CHOLESTEROL 47.2 MG/DL (40.0-60.0); LDL CHOLESTEROL 35 MG/DL (0-99); TOTAL BILIRUBIN ADULT 0.6 MG/DL (0.2-1.0)
[2016-09-15 05:57] LABS: CKMB 3.1 NG/ML (0.5-3.6)
[2016-09-15] MEDS: THIAMINE INJ 100 MG in SODIUM CHLORIDE 0.9% INJ 100 ML IV SCH (08:01)
[2016-09-15] MEDS: PANTOPRAZOLE SODIUM 40 MG VIAL IV SCH (08:01)
[2016-09-15] MEDS: ASPIRIN 81 MG CHEW TAB PO SCH (08:01)
[2016-09-15] MEDS: RAMIPRIL 2.5 MG CAP PO SCH (08:01)
[2016-09-15] MEDS: DOCUSATE SODIUM 100 MG CAP PO SCH ×2 (08:01→20:19)
[2016-09-15] MEDS: SODIUM CHLORIDE 0.9% FLUSH 5 ML FLUSH IV FLUSH SCH ×2 (08:02→20:20)
[2016-09-15] MEDS: CARVEDILOL 3.125 MG TAB PO SCH ×2 (08:02→20:19)
[2016-09-15] MEDS: ARTIFICIAL TEARS OPTH SOLN 15 ML BTL EACH EYE SCH ×3 (08:03→18:00)
[2016-09-15] MEDS: TICAGRELOR 90 MG TAB PO SCH ×2 (08:03→20:19)
[2016-09-15] MEDS: PHENYLEPHRINE 40 MG/D5W 496 ML ADMIX IV SCH ×2 (08:37)
[2016-09-15 11:37] LABS: BLOOD GAS BASE EXCESS 0.6 mmol/L (-2-2); BLOOD GAS CARBOXYHEMOGLOBIN 1.6 % (0-4); BLOOD GAS HCO3 25 mmol/L (22-26); BLOOD GAS METHEMOGLOBIN 1.3 % (0-2); BLOOD GAS O2 HGB SATURATION 95 % (90-100); BLOOD GAS OXYGEN CONTENT 14.7 Vol % (12.0-20.0); BLOOD GAS PCO2 42 mmHg (38-42); BLOOD GAS PO2 103 mmHg (61-120); BLOOD GAS TOTAL HGB 10.9 G/DL (12.0-16.0); CRITICAL VALUE NO; OXYGEN DEVICE VENTILATOR; TEMP CORR TO 98.6
[2016-09-15 11:38] LABS: DRAW SITE ART LINE; FIO2 40 %; STAT NO; VENT SETTINGS PRVC/AC
--- NOTE | 2016-09-15 11:47 | HHI.CCPN ---
Subjective Remarks/Hospital Course This is a 55 year old male. Date of admission 09/14/2016. Date of consultation 08/18/2016. Past medical history includes diabetes, hypertension, dyslipidemia, CHF and osteoarthritis. He presents to [facility] s/p vfib arrest. Patient was found fallen face first onto the ground. Patient was pulseless and CPR was initiated. ROSC at around 5 minutes. Patient was intubated at receiving 20 mg etomidate 1050 mg succinylcholine. Noted that Pt had ST elevation in V1, V2 in EVAC's EKG and ST elevation III and aVF here in ED. Discussed with Dr. Deleon and STEMI called. CT brain, cspine, maxillary facial ordered unremarkable. In cardio Lab, EF 20%. Left main 0%. LAD proximal 20%. Mid to distal 90%. Diagonal 0. Circumflex 95%. RCA 95%. Ramus 100%. PCI LAD with a YOAN of 3. Loaded with Brilinta 180 mg 1. Given Angiomax 15mL 1 in started at 35 mL an hour. Intra-aortic balloon pump placed at 1:1 with good augmentation around 130. Remains intubated Subjective 09/15: Noted the jugular tach arrest overnight requiring 200 joule fibrillation and CPR. Received amiodarone bolus post code. Currently resting comfortably in bed. Arousable, follows commands on sedation vacation. No bowel movement. Objective Vital Signs Date Time Temp Pulse Resp B/P Pulse Ox O2 Delivery O2 Flow Rate FiO2 09/15/16 11:00 68 09/15/16 11:00 85/50 09/15/16 11:00 99 Mechanical Ventilator 40 09/15/16 11:00 99.5 17 Intake and Output 09/14/16 09/14/16 09/15/16 08:00 16:00 00:00 Intake Total 500 ml Output Total 950 ml Balance -450 ml Result Diagram: 09/15/16 0436 09/15/16 0436 Imaging Last Impressions Maxillofacial CT 09/14/16 0000 Signed Impressions: Service Date/Time: Wednesday, September 14, 2016 11:52 - CONCLUSION: No acute bony injury Vasquez Gonzalez MD Head CT 09/14/16 0000 Signed Impressions: Service Date/Time: Wednesday, September 14, 2016 11:52 - CONCLUSION: Normal examination. Vasquez Gonzalez MD Chest X-Ray 09/14/16 0000 Signed Impressions: Service Date/Time: Wednesday, September 14, 2016 20:55 - CONCLUSION: 1. Support apparatus in satisfactory position. Mild basilar dependent airspace disease similar to exam from earlier today. Jose Spence MD Cervical Spine CT 09/14/16 0000 Signed Impressions: Service Date/Time: Wednesday, September 14, 2016 11:52 - CONCLUSION: Degenerative change. No acute bony injury. Vasquez Gonzalez MD Objective Remarks GENERAL: Middle-aged male, critically ill currently orotracheally intubated SKIN: Noted abrasions and nares, face. HEAD: Atraumatic. Normocephalic. EYES: Pupils equal and round about 3 mm bilaterally and reactive. No scleral icterus. No injection or drainage. ENT: Old blood surrounding nares. Mucous membranes pink and moist. NECK: Trachea midline. No JVD. CARDIOVASCULAR: Regular rate and rhythm. IABP counterpulsation RESPIRATORY: Clear to auscultation. Breath sounds equal bilaterally. GASTROINTESTINAL: Abdomen soft, distended. Hypoactive bowel sounds are appreciated.. Hepatic and splenic margins not palpable. MUSCULOSKELETAL: Extremities trace lower extremity edema. Balloon pump in right groin clean dry and intact. NEUROLOGICAL: Sedate on the ventilator on propofol drip. Urinary Catheter: Yes Assessment to: Continue Lara insert reason: Prolonged Immobilization Vascular Central Line Catheter: Yes Assessment to: Continue Date of Insertion: Sep 14, 2016 Line: Central Venous Catheter Side: Right Location: Internal, Jugular A/P Assessment and Plan Neuro/Psych: EtOH Currently sedated with propofol/fentanyl drips for sedation/analgesia while intubated Goal RASS -2 Daily sedation vacation when okay with cardiology Acetaminophen for fever Thiamine 100 mg by mouth daily Monitor for DTs. states he has not drank alcohol in 4 months CV: Cardiogenic shock Coronary artery disease History of hypertension Dyslipidemia Acute Systolic and diastolic heart failure V. tach arrest Cardiac catheterization EF 20%. Stent placed to mid LAD/bare-metal stent Left main 0%. Distal LAD 90%. Circumflex 95%. RCA 95%. Ramus 100%. IABP 1:1 good augmentation 2-D echo 1:30 - EF 25-30%. Bilateral atrial enlargement. Mild MR/TR. Grade 1 diastolic dysfunction. V. tach arrest overnight Received amiodarone after 200 J shock Received 2 g magnesium Currently on aspirin 81 mg daily and Brilinta 90 mg by mouth twice a day. Continue Coreg 3.125 mg by mouth twice a day for hypertension Continue Lipitor 10 mg by mouth daily dyslipidemia Altace 2.5 mg by mouth daily for hypertension added. Currently on Nnamdi-Synephrine 60 g per minute to maintain adequate MAP Resp: Acute respiratory failure PRVC 16/500/.04/20/40 Ventilator bundle Bronchodilator therapy every 6 hours and as needed Spontaneous breathing trials when indicated GI: Patient is currently nothing by mouth Start Glucerna 1.5 goal 55 cc an hour Protonix for GI prophylaxis Colace/Senokot twice daily for bowel regimen : History scrotal abscess Lara for accurate I's and O's in critically ill patient Endo: DM Hyperglycemia Insulin drip algorithm 1. Goal maintain tight euglycemia At home on Lantus 80 units 3 times a day, Apidra 8 0units daily metformin 1000 g twice a day. Check hemoglobin A1c Renal: Acute kidney injury Currently down to 1.2. Recheck BMP in a.m. Accurate I's and O/ Monitor urine output closely Heme: Leukocytosis Anemia Monitor CBC. Likely stress type reaction ID: Monitor for infection FEN: Replace electrolytes as clinically indicated MSK: Osteoarthritis PT evaluate and treat Access -Right IJ CVL day 2 Prophylaxis - GI - Protonix - DVT - heparin Critical Care: The total critical care time was 35 minutes. Time to perform other separately billable procedures was not included in the critical care time. Discussed with at bedside. Care plan discussed and all questions answered. Deferring cardiac discussion to Dr. deleon. Yung Guillermo MD Sep 15, 2016 11:46 Monitor urine output closely Heme: Leukocytosis Anemia Monitor CBC. Likely stress type reaction ID: Monitor for infection FEN: Replace electrolytes as clinically indicated MSK: Osteoarthritis PT evaluate and treat Access - Utilize peripheral IV. Central line if indicated Prophylaxis - GI - Protonix - DVT - heparin Critical Care: The total critical care time was 65 minutes. Time to perform other separately billable procedures was not included in the critical care time. Yung Guillermo MD Sep 15, 2016 11:46
[2016-09-15] MEDS ORDERED: MINERAL OIL LIQUID 30 ML CUP PO ONE (12:00)
[2016-09-15 12:30] LABS: APTT (PATIENT) 27.9 SEC (24.3-30.1)
[2016-09-15 12:35] LABS: HEMOGLOBIN A1a 1.2 %; HEMOGLOBIN A1b 2.7 %; HEMOGLOBIN LA1C 2.6 %; HEMOGLOBIN P3 5.3 %
--- NOTE | 2016-09-15 12:37 | PD.CARD.PN ---
Subjective Subjective Remarks VF arrest yest stable rhythm now amio bolus given IABP and intubated Objective Medications Active Medications Acetaminophen (Tylenol) 650 mg Q6H PRN PO; Start 09/14/16 at 15:45 Amiodarone HCl 150 mg/Dextrose 100 ml @ 25 mls/hr NOW ONCE IV Last administered on 09/14/16 22:47; Admin Dose 25 MLS/HR; Start 09/14/16 at 20:45; Stop 09/15/16 at 00:44; Status DC Artificial Tears (Tears Naturale Opth Soln) 1 drop TID EACH EYE Last administered on 09/15/16 08:03; Admin Dose 1 DROP; Start 09/14/16 at 18:00 Aspirin (Aspirin Chew) 81 mg DAILY PO Last administered on 09/15/16 08:01; Admin Dose 81 MG; Start 09/15/16 at 09:00 Atorvastatin Calcium 10 mg 10 mg HS PO; Start 09/14/16 at 21:00 Atropine Sulfate (Atropine Inj) 0.5 mg UNSCH PRN IV; Start 09/14/16 at 13:00 Bacitracin (Bacitracin Oint Packet) 0.9 gm ONCE ONCE TOP; Start 09/14/16 at 13: 00; Stop 09/14/16 at 13:21; Status DC Bivalirudin/ Sodium Chloride (Angiomax Inj/NS Inj) 50 ml @ 0 mls/hr Q0M IV; Start 09/14/16 at 12:47; Stop 09/14/16 at 16:46; Status DC Carvedilol (Coreg) 3.125 mg BID PO Last administered on 09/15/16 08:02; Admin Dose 3.125 MG; Start 09/15/16 at 09:00 Chlorhexidine Gluconate (Chlorhexidine 2% Cloth) 3 pack Taper DAILY@04 TOP Last administered on 09/15/16 04:00; Admin Dose 3 PACK; Start 09/15/16 at 04:00; Stop 09/11/17 at 03:59 Chlorhexidine Gluconate 3 pack 3 pack UNSCH PRN TOP; Start 09/14/16 at 15:45 Dextrose (D50w (Vial) Inj) 25 ml UNSCH PRN IV PUSH; Start 09/14/16 at 15:45 Docusate Sodium (Colace) 100 mg BID PO Last administered on 09/15/16 08:01; Admin Dose 100 MG; Start 09/14/16 at 21:00 Fentanyl Citrate 250 ml @ 0 mls/hr TITRATE IV Last administered on 09/14/16 17: 38; Admin Dose 0 MLS/HR; Start 09/14/16 at 15:45 Folic Acid (Folate) 1 mg DAILY PO; Start 09/16/16 at 09:00 Heparin Sodium/ Dextrose 250 ml @ 0 mls/hr TITRATE IV; Start 09/14/16 at 13:00 Insulin Human Regular/Sodium Chloride (NovoLIN R (IV INFUSION)/NS Inj) 100 ml @ 0 mls/hr TITRATE IV Last administered on 09/14/16 22:48; Admin Dose 0 MLS/HR; Start 09/14/16 at 15:45 IV Flush (NS Flush) 2 ml BID IV FLUSH Last administered on 09/15/16 08:02; Admin Dose 2 ML; Start 09/14/16 at 21:00 IV Flush (NS Flush) 2 ml UNSCH PRN IV FLUSH; Start 09/14/16 at 15:45 Lidocaine HCl (Xylocaine 1% Inj (50 ml)) 10 ml UNSCH PRN INFIL; Start 09/14/16 at 13:00; Stop 09/15/16 at 12:59 Lorazepam (Ativan Inj) 0.5 mg UNSCH PRN IV; Start 09/14/16 at 13:00; Stop 09/15 at 12:59 Magnesium Sulfate/ Dextrose (Magnesium Sulfate 1 Gm Premix) 100 ml @ 100 mls/ hr Q1H IV Last administered on 09/15/16 00:52; Admin Dose 100 MLS/HR; Start at 23:45; Stop 09/15/16 at 01:44; Status DC Metoclopramide HCl (Reglan Inj) 10 mg Q4H PRN IV; Start 09/14/16 at 13:00 Mineral Oil (Mineral Oil Liq) 15 ml ONCE ONCE PO; Start 09/15/16 at 12:00; Stop 09/15/16 at 12:17; Status DC Miscellaneous Information 1 ONCE ONCE XX; Start 09/14/16 at 13:00; Stop at 13:29; Status DC Miscellaneous Information 1 [id number] Last administered on 09/14/16 15:45; Admin Dose 1; Start 09/14/16 at 15:45 Miscellaneous Information 1 1 ONCE ONCE XX; Start 09/14/16 at 15:45; Stop 09/14 at 16:09; Status DC Multivitamins (Theragran) 1 tab DAILY PO; Start 09/16/16 at 09:00 Ondansetron HCl (Zofran Inj) 4 mg Q4H PRN IV; Start 09/14/16 at 13:00 Pantoprazole Sodium (Protonix Inj) 40 mg DAILY IV Last administered on 08:01; Admin Dose 40 MG; Start 09/15/16 at 09:00 Phenylephrine HCl 40 mg/Dextrose 500 ml @ 0 mls/hr TITRATE IV Last administered on 09/15/16 08:37; Admin Dose 0 MLS/HR; Start 09/14/16 at 18:00 Potassium Chloride (KCl 40 Meq/30 ml Liq) 40 meq ONCE ONCE PO Last administered on 09/14/16 23:52; Admin Dose 40 MEQ; Start 09/14/16 at 23:45; Stop 09/14/16 at 23:46; Status DC Propofol 100 ml @ 0 mls/hr TITRATE IV Last administered on 09/15/16 08:46; Admin Dose 0 MLS/HR; Start 09/14/16 at 15:45 Ramipril (Altace) 2.5 mg DAILY PO Last administered on 09/15/16 08:01; Admin Dose 2.5 MG; Start 09/15/16 at 09:00 Sennosides (Senokot) 17.2 mg Q12H PRN PO; Start 09/14/16 at 15:45; Stop at 11:49; Status DC Sennosides (Senokot) 17.2 mg Q12HR PO; Start 09/15/16 at 15:45 Sodium Chloride (NS 1000 ml Inj) 1,000 ml @ 84 mls/hr [id number] IV Last administered on 09/15/16 04:51; Admin Dose 84 MLS/HR; Start 09/14/16 at 16:00 Thiamine HCl 100 mg/Sodium Chloride 101 ml @ 101 mls/hr DAILY IV Last administered on 09/15/16 08:01; Admin Dose 101 MLS/HR; Start 09/14/16 at 18:00 Ticagrelor (Brilinta) 180 mg NOW ONCE PO Last administered on 09/14/16 13:30; Admin Dose 180 MG; Start 09/14/16 at 13:30; Stop 09/14/16 at 13:31; Status DC Ticagrelor 90 mg 90 mg BID PO Last administered on 09/15/16 08:03; Admin Dose 90 MG; Start 09/15/16 at 09:00 Vital Signs / I&O Vital Signs Date Time Temp Pulse Resp B/P Pulse Ox O2 Delivery O2 Flow Rate FiO2 09/15/16 12:00 88/51 09/15/16 11:00 68 09/15/16 11:00 85/50 09/15/16 11:00 99 Mechanical Ventilator 40 09/15/16 11:00 99.5 68 17 98/54 99 85/50 105/48 09/15/16 11:00 40 09/15/16 10:00 87/50 09/15/16 09:00 83/49 09/15/16 08:00 86/49 09/15/16 07:34 99 40 09/15/16 07:00 98 Mechanical Ventilator 40 09/15/16 07:00 65 09/15/16 07:00 99.6 65 16 90/47 98 85/50 105/50 09/15/16 07:00 85/50 09/15/16 07:00 40 09/15/16 06:09 84/48 09/15/16 05:17 80/45 09/15/16 04:41 99 60 09/15/16 04:22 89/50 09/15/16 03:14 80 09/15/16 03:14 98.9 73 17 96/54 100 104/49 09/15/16 03:14 100 Mechanical Ventilator 80 09/15/16 03:14 81/48 09/15/16 03:14 68 09/15/16 02:00 83/47 09/15/16 01:21 77/45 09/15/16 00:45 99 80 09/15/16 00:16 99 90 09/15/16 00:00 78/55 09/14/16 23:00 99 Mechanical Ventilator 100 09/14/16 23:00 99.5 75 17 96/53 99 108/52 09/14/16 23:00 90 09/14/16 23:00 86/52 09/14/16 23:00 75 09/14/16 22:18 99 100 09/14/16 22:00 86/54 09/14/16 21:00 88/55 09/14/16 20:19 99 100 09/14/16 19:21 98.9 72 17 92/53 99 96/47 09/14/16 19:21 99 Mechanical Ventilator 90 09/14/16 19:18 100 09/14/16 19:00 72 09/14/16 19:00 74/47 09/14/16 18:02 100 40 09/14/16 15:23 100 50 09/14/16 15:19 100/66 09/14/16 15:19 100 09/14/16 15:19 75 09/14/16 15:19 100 Mechanical Ventilator 100 09/14/16 15:19 98.0 72 16 117/79 100 09/14/16 13:25 100 100 I/O 09/14/16 09/14/16 09/14/16 09/15/16 09/15/16 09/15/16 07:00 15:00 23:00 07:00 15:00 23:00 Intake Total 500 ml 2673 ml Output Total 950 ml 650 ml Balance -450 ml 2023 ml Intake Oral 500 ml 0 ml IV Total 2673 ml Output Urine Total 600 ml 450 ml Gastric Drainage Total 350 ml 200 ml # Bowel Movements 0 Physical Exam CARDIOVASCULAR: Regular rate and rhythm without murmurs, gallops, or rubs. RESPIRATORY: Breath sounds equal bilaterally. No accessory muscle use. GASTROINTESTINAL: Abdomen soft, non-tender, nondistended. Laboratory Laboratory Tests Test 09/14/16 09/14/16 09/14/16 09/14/16 17:47 19:40 20:00 21:40 Blood Gas Puncture Site RT RADIAL ART LINE Blood Gas Patient Temperature 98.6 98.6 Blood Gas HCO3 27 mmol/L 23 mmol/L Blood Gas Base Excess 3.2 mmol/L -1.2 mmol/L Blood Gas Oxygen Saturation 96 % 87 % Arterial Blood pH 7.47 7.39 Arterial Blood Partial 37 mmHg 39 mmHg Pressure CO2 Arterial Blood Partial 131 mmHg 60 mmHg Pressure O2 Arterial Blood Oxygen Content 16.9 Vol % 15.6 Vol % Arterial Blood 1.4 % 1.5 % Carboxyhemoglobin Arterial Blood Methemoglobin 1.3 % 1.4 % Blood Gas Hemoglobin 12.3 G/DL 12.8 G/DL Oxygen Delivery Device VENTILATOR VENTILATOR Blood Gas Ventilator Setting AC PRVC/AC 500/16/+5PEEP Blood Gas Inspired Oxygen 50 % 100 % Activated Partial 37.8 SEC Thromboplast Time White Blood Count 18.7 TH/MM3 Red Blood Count 4.27 MIL/MM3 Hemoglobin 11.7 GM/DL Hematocrit 34.4 % Mean Corpuscular Volume 80.5 FL Mean Corpuscular Hemoglobin 27.5 PG Mean Corpuscular Hemoglobin 34.1 % Concent Red Cell Distribution Width 19.8 % Platelet Count 243 TH/MM3 Mean Platelet Volume 8.3 FL Neutrophils (%) (Auto) 85.1 % Lymphocytes (%) (Auto) 4.9 % Monocytes (%) (Auto) 8.3 % Eosinophils (%) (Auto) 1.5 % Basophils (%) (Auto) 0.2 % Neutrophils # (Auto) 15.9 TH/MM3 Lymphocytes # (Auto) 0.9 TH/MM3 Monocytes # (Auto) 1.6 TH/MM3 Eosinophils # (Auto) 0.3 TH/MM3 Basophils # (Auto) 0.0 TH/MM3 CBC Comment DIFF FINAL Differential Comment Sodium Level 139 MEQ/L Potassium Level 3.8 MEQ/L Chloride Level 102 MEQ/L Carbon Dioxide Level 28.3 MEQ/L Anion Gap 9 MEQ/L Blood Urea Nitrogen 23 MG/DL Creatinine 1.18 MG/DL Estimat Glomerular Filtration 53 ML/MIN Rate Random Glucose 212 MG/DL Lactic Acid Level 1.3 mmol/L Calcium Level 8.1 MG/DL Magnesium Level 1.8 MG/DL Test 09/15/16 09/15/16 09/15/16 09/15/16 04:36 05:12 11:26 11:40 White Blood Count 15.4 TH/MM3 Red Blood Count 3.94 MIL/MM3 Hemoglobin 11.0 GM/DL Hematocrit 32.0 % Mean Corpuscular Volume 81.3 FL Mean Corpuscular Hemoglobin 27.9 PG Mean Corpuscular Hemoglobin 34.4 % Concent Red Cell Distribution Width 20.4 % Platelet Count 232 TH/MM3 Mean Platelet Volume 8.3 FL Neutrophils (%) (Auto) 75.8 % Lymphocytes (%) (Auto) 8.2 % Monocytes (%) (Auto) 12.8 % Eosinophils (%) (Auto) 2.7 % Basophils (%) (Auto) 0.5 % Neutrophils # (Auto) 11.7 TH/MM3 Lymphocytes # (Auto) 1.3 TH/MM3 Monocytes # (Auto) 2.0 TH/MM3 Eosinophils # (Auto) 0.4 TH/MM3 Basophils # (Auto) 0.1 TH/MM3 CBC Comment DIFF FINAL Differential Comment Activated Partial 27.1 SEC 27.9 SEC Thromboplast Time Sodium Level 138 MEQ/L Potassium Level 4.4 MEQ/L Chloride Level 105 MEQ/L Carbon Dioxide Level 27.6 MEQ/L Anion Gap 5 MEQ/L Blood Urea Nitrogen 21 MG/DL Creatinine 1.28 MG/DL Estimat Glomerular Filtration 48 ML/MIN Rate Random Glucose 159 MG/DL Lactic Acid Level 1.3 mmol/L Calcium Level 7.8 MG/DL Phosphorus Level 3.1 MG/DL Magnesium Level 2.4 MG/DL Total Bilirubin 0.6 MG/DL Aspartate Amino Transf 28 U/L (AST/SGOT) Alanine Aminotransferase 32 U/L (ALT/SGPT) Alkaline Phosphatase 58 U/L Total Creatine Kinase 317 U/L Creatine Kinase MB 3.1 NG/ML Creatine Kinase MB % 1.0 % Total Protein 6.0 GM/DL Albumin 3.0 GM/DL Triglycerides Level 145 MG/DL Cholesterol Level 111 MG/DL LDL Cholesterol 35 MG/DL HDL Cholesterol 47.2 MG/DL Cholesterol/HDL Ratio 2.35 RATIO Thyroid Stimulating Hormone 1.080 uIU/ML 3rd Gen Nasal Screen MRSA (PCR) NEGATIVE Blood Gas Puncture Site ART LINE Blood Gas Patient Temperature 98.6 Blood Gas HCO3 25 mmol/L Blood Gas Base Excess 0.6 mmol/L Blood Gas Oxygen Saturation 95 % Arterial Blood pH 7.39 Arterial Blood Partial 42 mmHg Pressure CO2 Arterial Blood Partial 103 mmHg Pressure O2 Arterial Blood Oxygen Content 14.7 Vol % Arterial Blood 1.6 % Carboxyhemoglobin Arterial Blood Methemoglobin 1.3 % Blood Gas Hemoglobin 10.9 G/DL Oxygen Delivery Device VENTILATOR Blood Gas Ventilator Setting PRVC/AC Blood Gas Inspired Oxygen 40 % Imaging Last Impressions Maxillofacial CT 09/14/16 0000 Signed Impressions: Service Date/Time: Wednesday, September 14, 2016 11:52 - CONCLUSION: No acute bony injury Vasquez Gonzalez MD Head CT 09/14/16 0000 Signed Impressions: Service Date/Time: Wednesday, September 14, 2016 11:52 - CONCLUSION: Normal examination. Vasquez Gonzalez MD Chest X-Ray 09/14/16 0000 Signed Impressions: Service Date/Time: Wednesday, September 14, 2016 20:55 - CONCLUSION: 1. Support apparatus in satisfactory position. Mild basilar dependent airspace disease similar to exam from earlier today. Jose Spence MD Cervical Spine CT 09/14/16 0000 Signed Impressions: Service Date/Time: Wednesday, September 14, 2016 11:52 - CONCLUSION: Degenerative change. No acute bony injury. Vasquez Gonzalez MD Assessment and Plan Assessment and Plan CAD - s/p PCI LAD. residual LCx and RCA disease will be addressed later. cont asa and brillinta and statin cardiomyopathy - reduced EF. ischemic. cannot tolerate ENRIQUE due to hypotension hypotension - pressor support resp failure - lasix x 1 IV. wean sedation and attempt CPAP if can wean pressors Francisco Noble MD Sep 15, 2016 12:37
[2016-09-15] MEDS: FUROSEMIDE 20 MG/2 ML VIAL IV PUSH SCH (13:36)
--- NOTE | 2016-09-15 14:18 | EKG ---
Date Performed: 09/14/2016 Time Performed: 11:22:23 PTAGE: 89 years EKG: Sinus rhythm WITH FIRST DEGREE AV BLOCK WITH FREQUENT VENTRICULAR PREMATURE COMPLEXES INFERIOR MYOCARDIAL INFARCT ION ABNORMAL ECG Inferior ST elevation in lead III and aVF consistent with possible acute ST segment elevation infarct. Clinical correlation advised. NO PREVIOUS TRACING DOCTOR: Coral Adhikari Interpretating Date/Time 09/15/2016 14:16:31
--- NOTE | 2016-09-15 14:18 | EKG ---
Date Performed: 09/15/2016 Time Performed: 03:17:08 PTAGE: 89 years EKG: Sinus rhythm Probable inferior wall infarct of indeterminate age Compared to the PREVIOUS TRACING , there has been some improvement in the inferior ST elevation but other berkowitz no significant serial change PREVIOUS TRACIN09/14/2016 11.22 DOCTOR: Coral Adhikari Interpretating Date/Time 09/15/2016 14:17:30
[2016-09-15] MEDS: SENNOSIDES 8.6 MG TAB PO SCH ×2 (15:47→20:19)
[2016-09-15 16:46] LABS: BLOOD GAS BASE EXCESS 0.6 mmol/L (-2-2); BLOOD GAS CARBOXYHEMOGLOBIN 1.7 % (0-4); BLOOD GAS HCO3 24 mmol/L (22-26); BLOOD GAS METHEMOGLOBIN 1.1 % (0-2); BLOOD GAS O2 HGB SATURATION 96 % (90-100); BLOOD GAS OXYGEN CONTENT 14.6 Vol % (12.0-20.0); BLOOD GAS PCO2 38 mmHg (38-42); BLOOD GAS PO2 121 mmHg (61-120); BLOOD GAS TOTAL HGB 10.7 G/DL (12.0-16.0); CRITICAL VALUE NO; DRAW SITE ART LINE; FIO2 40 %; OXYGEN DEVICE VENTILATOR; STAT NO; TEMP CORR TO 98.6; VENT SETTINGS CPAP +5PEEP/ 10PSV
[2016-09-15 19:15] LABS: APTT (PATIENT) 29.6 SEC (24.3-30.1)
[2016-09-15 19:16] LABS: BICARBONATE 26.3 MEQ/L (21.0-32.0); MAGNESIUM 2.3 MG/DL (1.5-2.5); POTASSIUM 3.5 MEQ/L (3.5-5.1)
[2016-09-15] MEDS: ATORVASTATIN 10 MG TAB PO SCH (20:19)
[2016-09-16] VITALS (9 sets, daily range): BP systolic 116–143; BP diastolic 57–126; PULSE 82–96; RESP 16–22; TEMP 98.7–99.2; O2SAT 95–98
[2016-09-16] MEDS: MORPHINE SULFATE 4 MG/ML INJ IV PRN ×5 (01:32→18:39)
[2016-09-16] MEDS: SODIUM CHLOR 0.9% 1000 ML INJ 1,000 ML IV SCH ×2 (03:45→14:53)
[2016-09-16] MEDS: CHLORHEXIDINE GLUCONATE 2 % 1 PACK (2 CLOTHS) TOP SCH (04:00)
[2016-09-16] MEDS: RESP: ALBUTEROL 2.5 MG/IPRATROPIUM 0.5 MG NEB (SCH) INH ×4 (04:31→19:58)
[2016-09-16 05:13] LABS: AUTOMATED NEUTROPHIL # 10.3 TH/MM3 (1.8-7.7); BASOPHIL % 0.3 % (0.0-2.0); EOSINOPHIL # 0.3 TH/MM3 (0-0.4); EOSINOPHIL % 2.2 % (0.0-4.0); HEMATOCRIT 29.8 % (39.0-51.0); HEMO FLAGS DIFF FINAL; LYMPH % 7.1 % (9.0-44.0); LYMPHOCYTE # 0.9 TH/MM3 (1.0-4.8); MEAN CORPUSCULAR HEMOGLOBIN 27.9 PG (27.0-34.0); MONO % 13.3 % (0.0-8.0); NEUT % 77.1 % (16.0-70.0); PLATELET COUNT 133 TH/MM3 (150-450); RED BLOOD COUNT 3.64 MIL/MM3 (4.50-5.90); RED CELL DISTRIBUTION WIDTH 20.5 % (11.6-17.2); WHITE BLOOD COUNT 13.3 TH/MM3 (4.0-11.0)
[2016-09-16 05:35] LABS: ALT (GPT) 24 U/L (12-78); ANION GAP 8 MEQ/L (5-15); AST (GOT) 21 U/L (15-37); BICARBONATE 26.1 MEQ/L (21.0-32.0); BLOOD UREA NITROGEN 15 MG/DL (7-18); CHLORIDE 107 MEQ/L (98-107); GLOMERULAR FILTRATION RATE 81 ML/MIN (>89); MAGNESIUM 2.3 MG/DL (1.5-2.5); POTASSIUM 3.5 MEQ/L (3.5-5.1); SODIUM (NA) 141 MEQ/L (136-145)
[2016-09-16 05:37] LABS: ALKALINE PHOSPHATASE 54 U/L (45-117); TOTAL BILIRUBIN ADULT 0.8 MG/DL (0.2-1.0)
[2016-09-16 05:46] LABS: APTT (PATIENT) 32.2 SEC (24.3-30.1)
--- NOTE | 2016-09-16 06:42 | RADRPT ---
EXAM DATE/TIME: 09/16/2016 04:57 [facility] COMPARISON: No previous studies available for comparison. INDICATIONS : Respiratory distress. MEDICAL HISTORY : Myocardial infarction. SURGICAL HISTORY : None. ENCOUNTER: Subsequent ACUITY: 2 days PAIN SCORE: Non-responsive. LOCATION: Bilateral chest FINDINGS: Perihilar predominant bilateral infiltrates persists, not significantly changed. No large effusion de monstrated. No pneumothorax. Mild cardiomegaly again noted. Patient has been extubated. Nasogastric tube also out. There is a right internal jugular central veno us catheter with tip in the superior vena cava. CONCLUSION: 1. Endotracheal tube and nasogastric tube out. 2. No significant change perihilar airspace disease. Beka Mayorga MD on September 16, 2016 at 6:38 Board Certified Radiologist. This report was verified electronically.
[2016-09-16] MEDS ORDERED: POTASSIUM CHLORIDE 10 MEQ CONTROLLED RELEASE TAB PO ONE (08:15)
--- NOTE | 2016-09-16 09:07 | HHI.CCPN ---
Subjective Remarks/Hospital Course This is a 55 year old male. Date of admission 09/14/2016. Date of consultation 08/18/2016. Past medical history includes diabetes, hypertension, dyslipidemia, CHF and osteoarthritis. He presents to [facility] s/p vfib arrest. Patient was found fallen face first onto the ground. Patient was pulseless and CPR was initiated. ROSC at around 5 minutes. Patient was intubated at receiving 20 mg etomidate 1050 mg succinylcholine. Noted that Pt had ST elevation in V1, V2 in EVAC's EKG and ST elevation III and aVF here in ED. Discussed with Dr. Noble and STEMI called. CT brain, cspine, maxillary facial ordered unremarkable. In cardio Lab, EF 20%. Left main 0%. LAD proximal 20%. Mid to distal 90%. Diagonal 0. Circumflex 95%. RCA 95%. Ramus 100%. PCI LAD with a YOAN of 3. Loaded with Brilinta 180 mg 1. Given Angiomax 15mL 1 in started at 35 mL an hour. Intra-aortic balloon pump placed at 1:1 with good augmentation around 130. Remains intubated 09/15: Noted the ventricular tach arrest overnight requiring 200 joule fibrillation and CPR. Received amiodarone bolus post code. Currently resting comfortably in bed. Arousable, follows commands on sedation vacation. No bowel movement. Subjective 09/16: Extubated yesterday without complication. Tmax 99.8. Currently 99.1. One bowel movement. On 3 L nasal cannula currently. Memory improving. Objective Vital Signs Date Time Temp Pulse Resp B/P Pulse Ox O2 Delivery O2 Flow Rate FiO2 09/16/16 07:00 83 09/16/16 07:00 99.1 19 119/60 95 119/126 120/60 09/16/16 07:00 Nasal Cannula 3.00 09/15/16 15:00 40 Intake and Output 09/15/16 09/15/16 09/16/16 08:00 16:00 00:00 Intake Total 2673 ml 1910 ml Output Total 650 ml 1500 ml Balance 2023 ml 410 ml Result Diagram: 09/16/16 0437 09/16/16 0437 Imaging Last Impressions Chest X-Ray 09/16/16 0600 Signed Impressions: Service Date/Time: Friday, September 16, 2016 04:57 - CONCLUSION: 1. Endotracheal tube and nasogastric tube out. 2. No significant change perihilar airspace disease. Beka Mayorga MD Maxillofacial CT 09/14/16 0000 Signed Impressions: Service Date/Time: Wednesday, September 14, 2016 11:52 - CONCLUSION: No acute bony injury Vasquez Gonzalez MD Head CT 09/14/16 0000 Signed Impressions: Service Date/Time: Wednesday, September 14, 2016 11:52 - CONCLUSION: Normal examination. Vasquez Gonzalez MD Cervical Spine CT 09/14/16 0000 Signed Impressions: Service Date/Time: Wednesday, September 14, 2016 11:52 - CONCLUSION: Degenerative change. No acute bony injury. Vasquez Gonzalez MD Objective Remarks GENERAL: Middle-aged male, critically ill currently orotracheally intubated SKIN: Noted abrasions and nares, face. HEAD: Atraumatic. Normocephalic. EYES: Pupils equal and round about 3 mm bilaterally and reactive. No scleral icterus. No injection or drainage. ENT: Old blood surrounding nares. Mucous membranes pink and moist. NECK: Trachea midline. No JVD. CARDIOVASCULAR: Regular rate and rhythm. S1, S2. No S4. IABP counterpulsation RESPIRATORY: Clear to auscultation. Breath sounds equal bilaterally. GASTROINTESTINAL: Abdomen soft, distended. Hypoactive bowel sounds are appreciated.. Hepatic and splenic margins not palpable. MUSCULOSKELETAL: Extremities trace lower extremity edema. Balloon pump in right groin clean dry and intact. NEUROLOGICAL: Cranial nerves II through XII grossly intact. Strength is equal symmetric. Complaining of some intermittent numbness in left lower extremity not reproducible on my examination Vascular Central Line Catheter: Yes Assessment to: Continue Date of Insertion: Sep 14, 2016 Line: Central Venous Catheter Side: Right Location: Internal, Jugular A/P Assessment and Plan Neuro/Psych: EtOH Acetaminophen for fever Thiamine 100 mg by mouth daily Monitor for DTs. states he has not drank alcohol in 4 months CV: Cardiogenic shock Coronary artery disease History of hypertension Dyslipidemia Acute Systolic and diastolic heart failure V. tach arrest Cardiac catheterization EF 20%. Stent placed to mid LAD/bare-metal stent Left main 0%. Distal LAD 90%. Circumflex 95%. RCA 95%. Ramus 100%. IABP 1:1 good augmentation 2-D echo 1:30 - EF 25-30%. Bilateral atrial enlargement. Mild MR/TR. Grade 1 diastolic dysfunction. V. tach arrest overnight 09/14 Received amiodarone 300 mg bolus slowly over 4 hours after 200 J shock Received 2 g magnesium Currently on aspirin 81 mg daily and Brilinta 90 mg by mouth twice a day. Continue Coreg 3.125 mg by mouth twice a day for hypertension Continue Lipitor 10 mg by mouth daily dyslipidemia Altace 2.5 mg by mouth daily for hypertension added. Off Nnamdi-Synephrine currently. brought in bottle of Lasix 80 mg by mouth twice a day from home. Medicine reconciliation still pending. Patient goes to [facility] with Dr. Villa. Resp: Acute respiratory failure - resolved Nasal cannula to maintain saturations greater than equal to 90% IS while awake Bronchodilator therapy every 6 hours and as needed Chest x-ray 09/16 revealed no acute cardio pulmonary findings GI: Hypoalbuminemia Patient is currently nothing by mouth Passed swallow evaluation. Advance diet as tolerated ADA Protonix for GI prophylaxis Colace/Senokot twice daily for bowel regimen : History scrotal abscess Lara for accurate I's and O's in critically ill patient Endo: DM Hyperglycemia Insulin drip algorithm 1. Goal maintain tight euglycemia At home on Lantus 80 units 3 times a day, Apidra 80 units daily metformin 1000 g twice a day. Check hemoglobin A1c Renal: Acute kidney injury Currently down to 1.2. Recheck BMP in a.m. Accurate I's and O/ Monitor urine output closely Heme: Leukocytosis Anemia Thrombocytopenia Monitor CBC. Likely stress type reaction Monitor plts while on heparin drip ID: Monitor for infection FEN: Replace electrolytes as clinically indicated Received 30 mEq KCl by mouth 1 this morning MSK: Osteoarthritis PT evaluate and treat Access -Right IJ CVL day 3 Prophylaxis - GI - Protonix - DVT - heparin Critical Care: The total critical care time was 35 minutes. Time to perform other separately billable procedures was not included in the critical care time. Discussed with at bedside. Care plan discussed and all questions answered. Yung Guillermo MD Sep 16, 2016 09:07
[2016-09-16] MEDS: FOLIC ACID 1 MG TAB PO SCH (10:43)
[2016-09-16] MEDS: DOCUSATE SODIUM 100 MG CAP PO SCH ×2 (10:43→21:22)
[2016-09-16] MEDS: TICAGRELOR 90 MG TAB PO SCH ×2 (10:43→21:22)
[2016-09-16] MEDS: SENNOSIDES 8.6 MG TAB PO SCH ×2 (10:43→21:22)
[2016-09-16] MEDS: ASPIRIN 81 MG CHEW TAB PO SCH (10:44)
[2016-09-16] MEDS: MULTIVITAMIN TAB PO SCH (10:44)
[2016-09-16] MEDS: RAMIPRIL 2.5 MG CAP PO SCH (10:44)
[2016-09-16] MEDS: CARVEDILOL 3.125 MG TAB PO SCH ×2 (10:45→21:22)
[2016-09-16] MEDS: ONDANSETRON HCL 4 MG/2 ML VIAL IV PRN (10:45)
[2016-09-16] MEDS: FUROSEMIDE 20 MG/2 ML VIAL IV PUSH SCH ×2 (10:45→18:00)
[2016-09-16] MEDS: SODIUM CHLORIDE 0.9% FLUSH 5 ML FLUSH IV FLUSH SCH ×2 (10:47→21:23)
[2016-09-16] MEDS: ARTIFICIAL TEARS OPTH SOLN 15 ML BTL EACH EYE SCH ×3 (10:47→18:41)
[2016-09-16] MEDS: PANTOPRAZOLE SODIUM 40 MG VIAL IV SCH (10:53)
[2016-09-16] MEDS: THIAMINE INJ 100 MG in SODIUM CHLORIDE 0.9% INJ 100 ML IV SCH (10:55)
--- NOTE | 2016-09-16 13:53 | PD.CARD.PN ---
Subjective Subjective Remarks extubated alert orientated doing well Objective Medications Active Medications Ferrous Sulfate (Ferrous Sulfate) 325 mg BID@ PO; Start 09/16/16 at 17:00 Folic Acid (Folate) 1 mg DAILY PO Last administered on 09/16/16 10:43; Admin Dose 1 MG; Start 09/16/16 at 09:00 Morphine Sulfate (Morphine Inj) 2 mg Q3H PRN IV Last administered on 09/16/16 10:46; Admin Dose 2 MG; Start 09/16/16 at 01:15 Multivitamins (Theragran) 1 tab DAILY PO Last administered on 09/16/16 10:44; Admin Dose 1 TAB; Start 09/16/16 at 09:00 Potassium Chloride (KCl) 30 meq ONCE ONCE PO Last administered on 09/16/16 10: 44; Admin Dose 30 MEQ; Start 09/16/16 at 08:15; Stop 09/16/16 at 08:16; Status DC Sennosides (Senokot) 17.2 mg Q12HR PO Last administered on 09/16/16 10:43; Admin Dose 17.2 MG; Start 09/15/16 at 15:45 Vital Signs / I&O Vital Signs Date Time Temp Pulse Resp B/P Pulse Ox O2 Delivery O2 Flow Rate FiO2 09/16/16 12:04 116/108 09/16/16 11:00 116/108 09/16/16 11:00 98 Nasal Cannula 2.00 09/16/16 11:00 85 09/16/16 11:00 98.7 85 19 126/63 98 116/123 118/120 09/16/16 10:00 104/113 09/16/16 09:09 119/67 09/16/16 09:04 97 Nasal Cannula 3.00 09/16/16 08:00 122/68 09/16/16 08:00 116/75 09/16/16 07:00 83 09/16/16 07:00 99.1 82 19 119/60 95 119/126 120/60 09/16/16 07:00 113/123 09/16/16 07:00 98 Nasal Cannula 3.00 09/16/16 06:06 121/66 09/16/16 05:00 113/64 09/16/16 04:15 114/65 09/16/16 03:05 98 Nasal Cannula 3.00 09/16/16 03:05 86 09/16/16 03:05 98.7 86 16 119/57 98 132/64 09/16/16 03:00 114/66 09/16/16 02:00 106/58 09/16/16 01:00 110/62 09/16/16 00:00 107/61 09/15/16 23:40 97/54 09/15/16 23:40 98 Nasal Cannula 3.00 09/15/16 23:40 97.8 84 16 107/50 98 104/50 09/15/16 23:40 84 09/15/16 22:00 98/59 09/15/16 21:57 98 Nasal Cannula 3.00 09/15/16 21:00 103/60 09/15/16 20:00 117/68 09/15/16 19:14 98 Nasal Cannula 5.00 09/15/16 19:14 97.9 86 18 113/56 98 116/58 09/15/16 19:00 106/61 09/15/16 19:00 86 09/15/16 18:00 108/62 09/15/16 17:00 99/57 09/15/16 16:54 98 Nasal Cannula 3 09/15/16 16:00 92/55 09/15/16 15:00 99.8 75 19 102/57 95 89/53 108/50 09/15/16 15:00 89/53 09/15/16 15:00 40 09/15/16 15:00 95 Mechanical Ventilator 40 09/15/16 15:00 75 09/15/16 14:01 40 09/15/16 14:01 97 40 09/15/16 14:00 93/53 I/O 09/15/16 09/15/16 09/15/16 09/16/16 09/16/16 09/16/16 07:00 15:00 23:00 07:00 15:00 23:00 Intake Total 2673 ml 1910 ml 1468 ml Output Total 650 ml 1500 ml 720 ml Balance 2023 ml 410 ml 748 ml Intake Oral 0 ml 240 ml IV Total 2673 ml 1910 ml 1228 ml Output Urine Total 450 ml 1400 ml 720 ml Gastric Drainage Total 200 ml 100 ml # Bowel Movements 0 0 1 Physical Exam CARDIOVASCULAR: Regular rate and rhythm without murmurs, gallops, or rubs. RESPIRATORY: Breath sounds equal bilaterally. No accessory muscle use. GASTROINTESTINAL: Abdomen soft, non-tender, nondistended. Laboratory Laboratory Tests Test 09/15/16 09/15/16 09/16/16 14:35 18:36 04:37 Blood Gas Puncture Site ART LINE Blood Gas Patient Temperature 98.6 Blood Gas HCO3 24 mmol/L Blood Gas Base Excess 0.6 mmol/L Blood Gas Oxygen Saturation 96 % Arterial Blood pH 7.43 Arterial Blood Partial 38 mmHg Pressure CO2 Arterial Blood Partial 121 mmHg Pressure O2 Arterial Blood Oxygen Content 14.6 Vol % Arterial Blood 1.7 % Carboxyhemoglobin Arterial Blood Methemoglobin 1.1 % Blood Gas Hemoglobin 10.7 G/DL Oxygen Delivery Device VENTILATOR Blood Gas Ventilator Setting CPAP +5PEEP/ 10PSV Blood Gas Inspired Oxygen 40 % Activated Partial 29.6 SEC 32.2 SEC Thromboplast Time Sodium Level 138 MEQ/L 141 MEQ/L Potassium Level 3.5 MEQ/L 3.5 MEQ/L Chloride Level 104 MEQ/L 107 MEQ/L Carbon Dioxide Level 26.3 MEQ/L 26.1 MEQ/L Anion Gap 8 MEQ/L 8 MEQ/L Blood Urea Nitrogen 17 MG/DL 15 MG/DL Creatinine 1.17 MG/DL 0.96 MG/DL Estimat Glomerular Filtration 64 ML/MIN 81 ML/MIN Rate Random Glucose 144 MG/DL 139 MG/DL Calcium Level 7.9 MG/DL 8.1 MG/DL Phosphorus Level 2.7 MG/DL 2.8 MG/DL Magnesium Level 2.3 MG/DL 2.3 MG/DL White Blood Count 13.3 TH/MM3 Red Blood Count 3.64 MIL/MM3 Hemoglobin 10.1 GM/DL Hematocrit 29.8 % Mean Corpuscular Volume 82.0 FL Mean Corpuscular Hemoglobin 27.9 PG Mean Corpuscular Hemoglobin 34.0 % Concent Red Cell Distribution Width 20.5 % Platelet Count 133 TH/MM3 Mean Platelet Volume 8.2 FL Neutrophils (%) (Auto) 77.1 % Lymphocytes (%) (Auto) 7.1 % Monocytes (%) (Auto) 13.3 % Eosinophils (%) (Auto) 2.2 % Basophils (%) (Auto) 0.3 % Neutrophils # (Auto) 10.3 TH/MM3 Lymphocytes # (Auto) 0.9 TH/MM3 Monocytes # (Auto) 1.8 TH/MM3 Eosinophils # (Auto) 0.3 TH/MM3 Basophils # (Auto) 0.0 TH/MM3 CBC Comment DIFF FINAL Differential Comment Lactic Acid Level 0.8 mmol/L Total Bilirubin 0.8 MG/DL Aspartate Amino Transf 21 U/L (AST/SGOT) Alanine Aminotransferase 24 U/L (ALT/SGPT) Alkaline Phosphatase 54 U/L Total Protein 5.7 GM/DL Albumin 2.7 GM/DL Imaging Last Impressions Chest X-Ray 09/16/16 0600 Signed Impressions: Service Date/Time: Friday, September 16, 2016 04:57 - CONCLUSION: 1. Endotracheal tube and nasogastric tube out. 2. No significant change perihilar airspace disease. Beka Mayorga MD Maxillofacial CT 09/14/16 0000 Signed Impressions: Service Date/Time: Wednesday, September 14, 2016 11:52 - CONCLUSION: No acute bony injury Vasquez Gonzalez MD Head CT 09/14/16 0000 Signed Impressions: Service Date/Time: Wednesday, September 14, 2016 11:52 - CONCLUSION: Normal examination. Vasquez Gonzalez MD Cervical Spine CT 09/14/16 0000 Signed Impressions: Service Date/Time: Wednesday, September 14, 2016 11:52 - CONCLUSION: Degenerative change. No acute bony injury. Vasquez Gonzalez MD Assessment and Plan Assessment and Plan CAD - s/p PCI LAD. residual LCx and RCA disease. RCA and LCx medical mgt for now. may consider staged procedure later. cont asa and brillinta and statin cardiomyopathy - reduced EF. ischemic. Lasix IV. monitor I/O's may repeat echo prior to DC for evaluation of EF post PCI DC IABP anemia - no bleeding. DC heparin gtt. minimize blood draws. no transfusion unless cleared by cardiology. FeSO4 PT/OT when ambulatory Consider transfer to [facility] tomorrow if continued improvement. Francisco Noble MD Sep 16, 2016 13:53
[2016-09-16] MEDS: ACETAMINOPHEN/HYDROcodone 325 MG/5 MG TAB PO PRN ×2 (14:52→18:41)
[2016-09-16 18:23] LABS: APTT (PATIENT) 29.2 SEC (24.3-30.1)
[2016-09-16] MEDS: FERROUS SULFATE 325 MG (65 MG ELEMENTAL IRON) TAB PO SCH (18:39)
[2016-09-16] MEDS: ATORVASTATIN 40 MG TAB PO SCH (21:22)
[2016-09-17] VITALS (12 sets, daily range): BP systolic 116–146; BP diastolic 61–80; PULSE 84–103; RESP 18–26; TEMP 97.8–98.7; O2SAT 95–97
[2016-09-17] MEDS: ACETAMINOPHEN/HYDROcodone 325 MG/5 MG TAB PO PRN (02:15)
[2016-09-17] MEDS: RESP: ALBUTEROL 2.5 MG/IPRATROPIUM 0.5 MG NEB (SCH) INH ×4 (03:01→19:54)
[2016-09-17] MEDS: SODIUM CHLOR 0.9% 1000 ML INJ 1,000 ML IV SCH ×2 (03:35→15:30)
[2016-09-17] MEDS: CHLORHEXIDINE GLUCONATE 2 % 1 PACK (2 CLOTHS) TOP SCH (04:00)
[2016-09-17] MEDS: MORPHINE SULFATE 4 MG/ML INJ IV PRN (05:13)
--- NOTE | 2016-09-17 07:41 | PD.CARD.PN ---
Subjective Subjective Remarks extubated, alert and doing well. He denies chest pain or SOB. (Elly Grant) Objective Medications Current Medications Medications (Trade) Dose Ordered Sig/Ramin Route Start Time Stop Time Status Last Admin (Aspirin Chew) 81 mg DAILY PO 09/15/16 09:00 09/16/16 10:44 (Brilinta) 90 mg BID PO 09/15/16 09:00 09/16/16 21:22 (Atropine Inj) 0.5 mg UNSCH PRN IV 09/14/16 13:00 (Reglan Inj) 10 mg Q4H PRN IV 09/14/16 13:00 (Zofran Inj) 4 mg Q4H PRN IV 09/14/16 13:00 09/16/16 10:45 (Coreg) 3.125 mg BID PO 09/15/16 09:00 09/16/16 21:22 Ramipril 2.5 mg 2.5 mg DAILY PO 09/15/16 09:00 09/16/16 10:44 (NS 1000 ml Inj) 1,000 ml @ 84 mls/hr [id number] IV 09/14/16 16:00 09/16/16 14:53 (NS Flush) 2 ml UNSCH PRN IV FLUSH 09/14/16 15:45 (NS Flush) 2 ml BID IV FLUSH 09/14/16 21:00 09/16/16 21:23 (Protonix Inj) 40 mg DAILY IV 09/15/16 09:00 09/16/16 10:53 (Tears Naturale Opth Soln) 1 drop TID EACH EYE 09/14/16 18:00 09/16/16 18:41 (Colace) 100 mg BID PO 09/14/16 21:00 09/16/16 21:22 Miscellaneous Information 1 Q361D XX 09/14/16 15:45 09/14/16 15:45 (Chlorhexidine 2% Cloth) 3 pack Taper DAILY@04 TOP 09/15/16 04:00 09/11/17 03:59 09/17/16 04:00 Chlorhexidine Gluconate 3 pack 3 pack UNSCH PRN TOP 09/14/16 15:45 (NovoLIN R (IV INFUSION)/NS Inj) 100 ml @ 0 mls/hr TITRATE IV 09/14/16 15:45 09/14/16 22:48 Dextrose 25 ml 25 ml UNSCH PRN IV PUSH 09/14/16 15:45 Thiamine HCl 100 mg/Sodium Chloride 101 ml @ 101 mls/hr DAILY IV 09/14/16 18:00 09/16/16 10:55 (Neosynephrine Inj/D5W 500 ml Inj) 500 ml @ 0 mls/hr TITRATE IV 09/14/16 18:00 09/15/16 08:37 (Theragran) 1 tab DAILY PO 09/16/16 09:00 09/16/16 10:44 (Folate) 1 mg DAILY PO 09/16/16 09:00 09/16/16 10:43 (Senokot) 17.2 mg Q12HR PO 09/15/16 15:45 09/16/16 21:22 (Morphine Inj) 2 mg Q3H PRN IV 09/16/16 01:15 09/17/16 05:13 (Ferrous Sulfate) 325 mg BID@ PO 09/16/16 17:00 09/16/16 18:39 (Lipitor) 40 mg HS PO 09/16/16 21:00 09/16/16 21:22 (Lasix Inj) 40 mg BID@09,18 IV PUSH 09/16/16 18:00 09/16/16 18:00 (Tylenol) 650 mg Q6H PRN PO 09/16/16 14:30 ([place] 5-325 Mg) 1 tab Q4H PRN PO 09/16/16 14:30 09/17/16 02:15 (Dilaudid Pf Inj) 1 mg Q4H PRN IV 09/16/16 14:30 Vital Signs / I&O Vital Signs Date Time Temp Pulse Resp B/P Pulse Ox O2 Delivery O2 Flow Rate FiO2 09/17/16 07:29 96 Nasal Cannula 2.00 09/17/16 04:00 95 Nasal Cannula 2.00 09/17/16 04:00 98.7 98 20 125/65 95 09/17/16 04:00 98 09/17/16 03:15 20 09/17/16 00:00 97.8 96 22 146/75 95 09/17/16 00:00 97 Nasal Cannula 2.00 09/17/16 00:00 96 09/16/16 20:00 97 Nasal Cannula 2.00 09/16/16 20:00 99.2 90 22 143/75 98 09/16/16 19:00 86 09/16/16 19:00 13 09/16/16 15:13 98 Nasal Cannula 2.00 09/16/16 15:13 90 09/16/16 15:11 99.1 82 19 126/69 98 Arterial Line 09/16/16 12:04 116/108 09/16/16 11:00 116/108 09/16/16 11:00 98 Nasal Cannula 2.00 09/16/16 11:00 85 09/16/16 11:00 98.7 85 19 126/63 98 116/123 118/120 09/16/16 10:00 104/113 09/16/16 09:09 119/67 09/16/16 09:04 97 Nasal Cannula 3.00 09/16/16 08:00 122/68 09/16/16 08:00 116/75 I/O 09/16/16 09/16/16 09/16/16 09/17/16 09/17/16 09/17/16 07:00 15:00 23:00 07:00 15:00 23:00 Intake Total 1468 ml 2300 ml 2331 ml Output Total 720 ml 1750 ml 1675 ml Balance 748 ml 550 ml 656 ml Intake Oral 240 ml 850 ml 480 ml IV Total 1228 ml 1450 ml 1851 ml Output Urine Total 720 ml 1750 ml 1675 ml # Bowel Movements 1 0 0 Physical Exam GENERAL: SKIN: Warm and dry. EYES: Pupils equal and round. No scleral icterus. No injection or drainage. ENT: No nasal bleeding or discharge. Mucous membranes pink and moist. NECK: Trachea midline. No JVD. CARDIOVASCULAR: Regular rate and rhythm. RESPIRATORY: No accessory muscle use. Clear to auscultation. Breath sounds equal bilaterally. GASTROINTESTINAL: Abdomen soft, non-tender, MUSCULOSKELETAL: Extremities without clubbing, cyanosis, or edema. No obvious deformities. NEUROLOGICAL: Awake and alert. No obvious cranial nerve deficits.. Normal speech. PSYCHIATRIC: Appropriate mood and affect; insight and judgment normal. Laboratory Laboratory Tests Test 09/16/16 17:30 Activated Partial 29.2 SEC Thromboplast Time (Elly Grant) Assessment and Plan Problem List: (1) (2) Assessment and Plan 55 yo with vfib arrest and STEMI CAD- s/p PCI LAD with residual disease to LCx and RCA which will be considered for staged procedure in the future and being medically managed. Cont ASA/ Brilinta Will need echo before discharge to assess post-op EF. anemia - Hgb 10.1, cont FeS04. consider transfer to [facility] (Elly Grant) Assessment and Plan OOB. PT/OT. CM. once ambulatory, consider transfer to [facility]. (Francisco Noble MD) Elly Grant Sep 17, 2016 07:41 Francisco Noble MD Sep 17, 2016 08:43
[2016-09-17] MEDS: FOLIC ACID 1 MG TAB PO SCH (08:38)
[2016-09-17] MEDS: ASPIRIN 81 MG CHEW TAB PO SCH (08:38)
[2016-09-17] MEDS: SENNOSIDES 8.6 MG TAB PO SCH ×2 (08:38→22:31)
[2016-09-17] MEDS: TICAGRELOR 90 MG TAB PO SCH ×2 (08:38→21:32)
[2016-09-17] MEDS: MULTIVITAMIN TAB PO SCH (08:38)
[2016-09-17] MEDS: RAMIPRIL 2.5 MG CAP PO SCH (08:38)
[2016-09-17] MEDS: CARVEDILOL 3.125 MG TAB PO SCH ×2 (08:39→21:32)
[2016-09-17] MEDS: FUROSEMIDE 20 MG/2 ML VIAL IV PUSH SCH ×2 (08:40→17:06)
[2016-09-17] MEDS: ARTIFICIAL TEARS OPTH SOLN 15 ML BTL EACH EYE SCH ×2 (09:00→18:00)
[2016-09-17] MEDS ORDERED: METO5TAB3 PO (09:58)
[2016-09-17] MEDS ORDERED: LISI10TA3 PO (09:58)
[2016-09-17] MEDS ORDERED: FURO40TA PO (09:58)
[2016-09-17] MEDS ORDERED: CARV12.5 PO (09:58)
[2016-09-17] MEDS ORDERED: INSU1INJ14 SQ (09:58)
[2016-09-17] MEDS ORDERED: ATOR20TA15 PO (09:58)
[2016-09-17] MEDS ORDERED: NOVOINJ3 SQ (09:58)
[2016-09-17] MEDS: FERROUS SULFATE 325 MG (65 MG ELEMENTAL IRON) TAB PO SCH ×2 (12:00→17:06)
[2016-09-17] MEDS ORDERED: GLUCAGON 1 MG/ML VIAL OTHER PRN (14:00)
[2016-09-17] MEDS ORDERED: DEXTROSE 50% IN WATER 50 ML VIAL(D50) IV PUSH PRN (14:00)
--- NOTE | 2016-09-17 15:14 | HHI.CCPN ---
Subjective Remarks/Hospital Course This is a 55 year old male. Date of admission 09/14/2016. Date of consultation 08/18/2016. Past medical history includes diabetes, hypertension, dyslipidemia, CHF and osteoarthritis. He presents to [facility] s/p vfib arrest. Patient was found fallen face first onto the ground. Patient was pulseless and CPR was initiated. ROSC at around 5 minutes. Patient was intubated at receiving 20 mg etomidate 1050 mg succinylcholine. Noted that Pt had ST elevation in V1, V2 in EVAC's EKG and ST elevation III and aVF here in ED. Discussed with Dr. Noble and STEMI called. CT brain, cspine, maxillary facial ordered unremarkable. In cardio Lab, EF 20%. Left main 0%. LAD proximal 20%. Mid to distal 90%. Diagonal 0. Circumflex 95%. RCA 95%. Ramus 100%. PCI LAD with a YOAN of 3. Loaded with Brilinta 180 mg 1. Given Angiomax 15mL 1 in started at 35 mL an hour. Intra-aortic balloon pump placed at 1:1 with good augmentation around 130. Remains intubated 09/15: Noted the ventricular tach arrest overnight requiring 200 joule fibrillation and CPR. Received amiodarone bolus post code. Currently resting comfortably in bed. Arousable, follows commands on sedation vacation. No bowel movement. Subjective 09/16: Extubated yesterday without complication. Tmax 99.8. Currently 99.1. One bowel movement. On 3 L nasal cannula currently. Memory improving. 09/17: Resting comfortably on nasal cannula. Being transferred out of ICU today Objective Vital Signs Date Time Temp Pulse Resp B/P Pulse Ox O2 Delivery O2 Flow Rate FiO2 09/17/16 11:00 96 Nasal Cannula 2.00 09/17/16 11:00 84 09/17/16 11:00 98.3 18 136/67 09/15/16 15:00 40 Intake and Output 09/16/16 09/16/16 09/17/16 08:00 16:00 00:00 Intake Total 1468 ml 2300 ml Output Total 720 ml 1750 ml Balance 748 ml 550 ml Result Diagram: 09/16/16 0437 09/16/16 9487 Imaging Last Impressions Chest X-Ray 09/16/16 0600 Signed Impressions: Service Date/Time: Friday, September 16, 2016 04:57 - CONCLUSION: 1. Endotracheal tube and nasogastric tube out. 2. No significant change perihilar airspace disease. Beka Mayorga MD Maxillofacial CT 09/14/16 0000 Signed Impressions: Service Date/Time: Wednesday, September 14, 2016 11:52 - CONCLUSION: No acute bony injury Vasquez Gonzalez MD Head CT 09/14/16 0000 Signed Impressions: Service Date/Time: Wednesday, September 14, 2016 11:52 - CONCLUSION: Normal examination. Vasquez Gonzalez MD Cervical Spine CT 09/14/16 Signed Impressions: Service Date/Time: Wednesday, September 14, 2016 11:52 - CONCLUSION: Degenerative change. No acute bony injury. Vasquez Gonzalez MD Objective Remarks GENERAL: Middle-aged male, sitting up in bed in no acute distress SKIN: Noted abrasions and nares, face. HEAD: Atraumatic. Normocephalic. EYES: Pupils equal and round about 3 mm bilaterally and reactive. No scleral icterus. No injection or drainage. ENT: Mucous membranes pink and moist. NECK: Trachea midline. No JVD. CARDIOVASCULAR: Regular rate and rhythm. S1, S2. No S4 RESPIRATORY: Clear to auscultation. Breath sounds equal bilaterally. GASTROINTESTINAL: Abdomen soft, distended. Hypoactive bowel sounds are appreciated.. Hepatic and splenic margins not palpable. MUSCULOSKELETAL: Extremities trace lower extremity edema. NEUROLOGICAL: Cranial nerves II through XII grossly intact. Strength is equal symmetric. Date of Insertion: Sep 14, 2016 Line: Central Venous Catheter Side: Right Location: Internal, Jugular A/P Assessment and Plan Neuro/Psych: EtOH Acetaminophen for fever Thiamine 100 mg by mouth daily Monitor for DTs. states he has not drank alcohol in 4 months CV: Cardiogenic shock Coronary artery disease History of hypertension Dyslipidemia Acute Systolic and diastolic heart failure V. tach arrest Cardiac catheterization EF 20%. Stent placed to mid LAD/bare-metal stent Left main 0%. Distal LAD 90%. Circumflex 95%. RCA 95%. Ramus 100%. IABP discontinued on 09/16 2-D echo 1:30 - EF 25-30%. Bilateral atrial enlargement. Mild MR/TR. Grade 1 diastolic dysfunction. V. tach arrest overnight 09/14 Received amiodarone 300 mg bolus slowly over 4 hours after 200 J shock Received 2 g magnesium Currently on aspirin 81 mg daily and Brilinta 90 mg by mouth twice a day. Continue Coreg 3.125 mg by mouth twice a day for hypertension Continue Lipitor 10 mg by mouth daily dyslipidemia Altace 2.5 mg by mouth daily for hypertension added. Off Nnamdi-Synephrine currently. brought in bottle of Lasix 80 mg by mouth twice a day from home. Resume diuretic when okay with cardiology. Patient goes to [facility] with Dr. Villa. Resp: Acute respiratory failure - resolved Nasal cannula to maintain saturations greater than equal to 90% IS while awake Bronchodilator therapy every 6 hours and as needed Chest x-ray 09/16 revealed no acute cardio pulmonary findings GI: Hypoalbuminemia Patient is currently nothing by mouth Passed swallow evaluation. Advance diet as tolerated ADA Protonix for GI prophylaxis Colace/Senokot twice daily for bowel regimen : History scrotal abscess Lara for accurate I's and O's in critically ill patient Endo: DM Hyperglycemia Switched from insulin drip to sliding scale insulin. At home on Lantus 80 units 3 times a day, Apidra 80 units daily metformin 1000 g twice a day. Check hemoglobin A1c Renal: Acute kidney injury Accurate I's and O/ Monitor urine output closely, follow BUN/creatinine. Resume diuretic when okay with cardiology Heme: Leukocytosis Anemia Thrombocytopenia Monitor CBC. Likely stress type reaction Off heparin drip ID: Monitor for infection FEN: Replace electrolytes as clinically indicated Received 30 mEq KCl by mouth 1 this morning MSK: Osteoarthritis PT evaluate and treat Access -Right IJ CVL day 4 Prophylaxis - GI - Protonix - DVT - heparin Patient being transferred out of ICU. Consult and transfer to hospitalist service for further medical management. Further recommendations per cardiology. Fermin Winn MD Sep 17, 2016 15:14
[2016-09-17] MEDS: DOCUSATE SODIUM 100 MG CAP PO SCH ×2 (17:06→21:32)
[2016-09-17] MEDS: PANTOPRAZOLE SODIUM 40 MG VIAL IV SCH (17:06)
[2016-09-17] MEDS: HYDROmorphone HCL PF 1 MG/ML VIAL IV PRN ×3 (17:27→21:33)
[2016-09-17] MEDS: SODIUM CHLORIDE 0.9% FLUSH 5 ML FLUSH IV FLUSH SCH (21:00)
[2016-09-17] MEDS: ATORVASTATIN 40 MG TAB PO SCH (21:32)
[2016-09-17] MEDS: HIGH DOSE INSULIN NOVOLOG SUPPLEMENTAL SCALE SQ SCH (21:38)
[2016-09-18] VITALS (29 sets, daily range): BP systolic 120–138; BP diastolic 67–76; PULSE 77–100; RESP 16–29; TEMP 97.5–98.9; O2SAT 94–98
[2016-09-18] MEDS: SODIUM CHLOR 0.9% 1000 ML INJ 1,000 ML IV SCH (03:39)
[2016-09-18] MEDS: HYDROmorphone HCL PF 1 MG/ML VIAL IV PRN (03:53)
[2016-09-18] MEDS: CHLORHEXIDINE GLUCONATE 2 % 1 PACK (2 CLOTHS) TOP SCH (04:00)
[2016-09-18] MEDS: RESP: ALBUTEROL 2.5 MG/IPRATROPIUM 0.5 MG NEB (SCH) INH ×2 (04:20→10:50)
[2016-09-18] MEDS: HIGH DOSE INSULIN NOVOLOG SUPPLEMENTAL SCALE SQ SCH ×4 (06:40→20:29)
[2016-09-18 07:22] LABS: HEMATOCRIT 29.9 % (39.0-51.0); MEAN CELL VOLUME 81.9 FL (80.0-100.0); MEAN CORPUSCULAR HEMOGLOBIN 28.1 PG (27.0-34.0); MEAN CORPUSCULAR HGB CONC 34.4 % (32.0-36.0); PLATELET COUNT 169 TH/MM3 (150-450); RED BLOOD COUNT 3.66 MIL/MM3 (4.50-5.90); RED CELL DISTRIBUTION WIDTH 20.2 % (11.6-17.2); REVIEW FLAG FINAL; WHITE BLOOD COUNT 10.5 TH/MM3 (4.0-11.0)
[2016-09-18 07:36] LABS: BICARBONATE 27.5 MEQ/L (21.0-32.0); POTASSIUM 3.5 MEQ/L (3.5-5.1)
[2016-09-18] MEDS: ARTIFICIAL TEARS OPTH SOLN 15 ML BTL EACH EYE SCH ×4 (09:00→18:04)
[2016-09-18] MEDS: FUROSEMIDE 20 MG/2 ML VIAL IV PUSH SCH (09:00)
[2016-09-18] MEDS: THIAMINE INJ 100 MG in SODIUM CHLORIDE 0.9% INJ 100 ML IV SCH ×2 (09:00→10:47)
--- NOTE | 2016-09-18 09:12 | PD.CARD.PN ---
Subjective Subjective Remarks denies angina (David Hollis) Objective Vital Signs / I&O Vital Signs Date Time Temp Pulse Resp B/P Pulse Ox O2 Delivery O2 Flow Rate FiO2 09/18/16 07:51 Nasal Cannula 1.00 09/18/16 07:48 97.5 83 16 120/70 94 09/18/16 06:00 90 09/18/16 05:00 91 09/18/16 04:23 22 09/18/16 04:00 91 09/18/16 03:00 98 Nasal Cannula 2.00 09/18/16 03:00 98.0 92 29 130/76 98 09/18/16 03:00 77 09/18/16 02:00 87 09/18/16 01:04 90 09/18/16 00:00 92 09/17/16 23:00 97 Nasal Cannula 2.00 09/17/16 23:00 98.4 88 26 116/61 97 09/17/16 23:00 92 09/17/16 22:00 92 09/17/16 21:00 103 09/17/16 20:00 95 09/17/16 19:54 96 Nasal Cannula 2.00 09/17/16 19:00 95 09/17/16 19:00 97 Nasal Cannula 2.00 09/17/16 19:00 95 09/17/16 19:00 98.0 97 26 141/80 97 09/17/16 15:00 98.6 93 20 134/70 96 09/17/16 15:00 96 Nasal Cannula 2.00 09/17/16 15:00 93 09/17/16 11:00 96 Nasal Cannula 2.00 09/17/16 11:00 84 09/17/16 11:00 98.3 101 18 136/67 96 I/O 09/17/16 09/17/16 09/17/16 09/18/16 09/18/16 09/18/16 07:00 15:00 23:00 07:00 15:00 23:00 Intake Total 2331 ml 540 ml 1909 ml Output Total 1675 ml 2100 ml 700 ml Balance 656 ml -1560 ml 1209 ml Intake Oral 480 ml 120 ml 960 ml IV Total 1851 ml 420 ml 949 ml Output Urine Total 1675 ml 2100 ml 700 ml # Bowel Movements 0 0 Physical Exam GENERAL: Well-nourished, well-developed patient in no apparent distress. NECK: No JVD. No carotid bruit. CARDIOVASCULAR: Regular rate and rhythm. S1/S2 no murmur, rub, or gallop. RESPIRATORY: No accessory muscle use. Clear to auscultation. Breath sounds equal bilaterally. GASTROINTESTINAL: Abdomen soft, non-tender, nondistended. MUSCULOSKELETAL: Extremities without clubbing, cyanosis, or edema. Laboratory Laboratory Tests Test 09/18/16 06:50 White Blood Count 10.5 TH/MM3 Red Blood Count 3.66 MIL/MM3 Hemoglobin 10.3 GM/DL Hematocrit 29.9 % Mean Corpuscular Volume 81.9 FL Mean Corpuscular Hemoglobin 28.1 PG Mean Corpuscular Hemoglobin 34.4 % Concent Red Cell Distribution Width 20.2 % Platelet Count 169 TH/MM3 Mean Platelet Volume 7.8 FL Sodium Level 140 MEQ/L Potassium Level 3.5 MEQ/L Chloride Level 103 MEQ/L Carbon Dioxide Level 27.5 MEQ/L Anion Gap 10 MEQ/L Blood Urea Nitrogen 16 MG/DL Creatinine 0.99 MG/DL Estimat Glomerular Filtration 78 ML/MIN Rate Random Glucose 196 MG/DL Calcium Level 8.4 MG/DL (David Hollis) Assessment and Plan Problem List: (1) Cardiac arrest (2) STEMI (ST elevation myocardial infarction) Assessment and Plan CAD- s/p PCI LAD with residual disease to LCx and RCA which will be considered for staged procedure in the future and being medically managed. Cont ASA/ Brilinta Will need echo before discharge to assess post-op EF. Transfer to [facility] once ambulatory (David Hollis) Assessment and Plan STEMI - PCI LAD. asa plavix statin bb hardik repeat echo for EF, limited. last echo was in setting of cardiogenic shock. EF severely reduced. ambulate with assistance transfer to [facility] tele Case management PT/OT arrange for rehab when ready for DC lasix to 40 PO BID can address residual CAD as outpatient. med mg for now (Francisco Noble MD) Problem Qualifiers (1) STEMI (ST elevation myocardial infarction): Qualified Code: I21.3 - ST elevation myocardial infarction (STEMI), unspecified artery David Hollis Sep 18, 2016 09:12 Francisco Noble MD Sep 18, 2016 13:18
[2016-09-18] MEDS: TICAGRELOR 90 MG TAB PO SCH (09:57)
[2016-09-18] MEDS: FOLIC ACID 1 MG TAB PO SCH (09:57)
[2016-09-18] MEDS: ASPIRIN 81 MG CHEW TAB PO SCH (09:57)
[2016-09-18] MEDS: CARVEDILOL 3.125 MG TAB PO SCH ×2 (09:57→20:29)
[2016-09-18] MEDS: MULTIVITAMIN TAB PO SCH (09:57)
[2016-09-18] MEDS: DOCUSATE SODIUM 100 MG CAP PO SCH ×2 (09:57→20:29)
[2016-09-18] MEDS: SENNOSIDES 8.6 MG TAB PO SCH ×2 (09:57→20:28)
[2016-09-18] MEDS: SODIUM CHLORIDE 0.9% FLUSH 5 ML FLUSH IV FLUSH SCH ×2 (09:57→20:30)
[2016-09-18] MEDS: PANTOPRAZOLE SODIUM 40 MG VIAL IV SCH (09:57)
[2016-09-18] MEDS: RAMIPRIL 2.5 MG CAP PO SCH (10:46)
[2016-09-18] MEDS ORDERED: FUROSEMIDE 40 MG/4 ML VIAL IV PUSH SCH (11:00)
[2016-09-18] MEDS ORDERED: CLOPIDOGREL 300 MG TAB PO ONE (13:00)
[2016-09-18] MEDS: FERROUS SULFATE 325 MG (65 MG ELEMENTAL IRON) TAB PO SCH ×2 (13:57→18:02)
--- NOTE | 2016-09-18 16:06 | HHI.PR ---
Subjective Remarks No new complaints. Objective Vitals Vital Signs Date Time Temp Pulse Resp B/P Pulse Ox O2 Delivery O2 Flow Rate FiO2 09/18/16 12:27 98.1 91 23 130/67 97 09/18/16 11:56 91 09/18/16 11:00 94 09/18/16 10:51 96 Nasal Cannula 1.00 09/18/16 10:00 100 09/18/16 09:00 87 09/18/16 08:00 83 09/18/16 07:51 Nasal Cannula 1.00 09/18/16 07:48 97.5 83 16 120/70 94 09/18/16 06:00 90 09/18/16 05:00 91 09/18/16 04:23 22 09/18/16 04:00 91 09/18/16 03:00 98 Nasal Cannula 2.00 09/18/16 03:00 98.0 92 29 130/76 98 09/18/16 03:00 77 09/18/16 02:00 87 09/18/16 01:04 90 09/18/16 00:00 92 09/17/16 23:00 97 Nasal Cannula 2.00 09/17/16 23:00 98.4 88 26 116/61 97 09/17/16 23:00 92 09/17/16 22:00 92 09/17/16 21:00 103 09/17/16 20:00 95 09/17/16 19:54 96 Nasal Cannula 2.00 09/17/16 19:00 95 09/17/16 19:00 97 Nasal Cannula 2.00 09/17/16 19:00 95 09/17/16 19:00 98.0 97 26 141/80 97 09/17/16 09/17/16 09/18/16 15:00 23:00 07:00 Intake Total 540 ml 1909 ml Output Total 2100 ml 700 ml Balance -1560 ml 1209 ml Intake Oral 120 ml 960 ml IV Total 420 ml 949 ml Output Urine Total 2100 ml 700 ml # Bowel Movements 0 Result Diagram: 09/18/16 0650 09/18/16 0650 Imaging Last Impressions Chest X-Ray 09/16/16 0600 Signed Impressions: Service Date/Time: Friday, September 16, 2016 04:57 - CONCLUSION: 1. Endotracheal tube and nasogastric tube out. 2. No significant change perihilar airspace disease. Beka Mayorga MD Maxillofacial CT 09/14/16 0000 Signed Impressions: Service Date/Time: Wednesday, September 14, 2016 11:52 - CONCLUSION: No acute bony injury Vasquez Gonzalez MD Head CT 09/14/16 0000 Signed Impressions: Service Date/Time: Wednesday, September 14, 2016 11:52 - CONCLUSION: Normal examination. Vasquez Gonzalez MD Cervical Spine CT 09/14/16 0000 Signed Impressions: Service Date/Time: Wednesday, September 14, 2016 11:52 - CONCLUSION: Degenerative change. No acute bony injury. Vasquez Gonzalez MD Objective Remarks GENERAL: This is a well-nourished, well-developed patient, in no apparent distress. CARDIOVASCULAR: Regular rate and rhythm without murmurs, gallops, or rubs. RESPIRATORY: Clear to auscultation. Breath sounds equal bilaterally. No wheezes , rales, or rhonchi. GASTROINTESTINAL: Abdomen soft, non-tender, nondistended. Normal active bowel sounds MUSCULOSKELETAL: Extremities without clubbing, cyanosis, or edema. NEURO: Alert & Oriented x4 to person, place, time, situation. Moves all ext x4 Date of Insertion: Sep 14, 2016 Line: Central Venous Catheter Side: Right Location: Internal, Jugular A/P Problem List: (1) CAD (coronary artery disease) Status: Acute Plan: - Pt admitted with VF arrest, s/p successful resuscitation - [facility] with Dr. Noble - multivessel disease - bare metal stent placed in mid-LAD - per Cardiology pt will require further PCI - altace, coreg, lipitor, ASA, plavix (2) Systolic and diastolic CHF, acute on chronic Status: Acute Plan: - lasix 40mg BID - Echocardiogram (09/14/16) - Systolic, EF 25-30% - grade 1 diastolic dysfunction (3) STEMI (ST elevation myocardial infarction) Status: Acute Plan: - see above (4) Cardiac arrest with ventricular fibrillation Status: Acute Plan: - see above (5) HTN (hypertension) Status: Chronic Plan: - coreg, altace (6) DM2 (diabetes mellitus, type 2) Status: Acute Plan: - stable - SSI (7) Generalized weakness Status: Acute Plan: - PT - Pt needs SNF at the end of current hospitalization Problem Qualifiers (1) STEMI (ST elevation myocardial infarction): Qualified Code: I21.3 - ST elevation myocardial infarction (STEMI), unspecified artery (2) HTN (hypertension): Qualified Code: I10 - Essential hypertension (3) DM2 (diabetes mellitus, type 2): Qualified Code: E11.8 - Type 2 diabetes mellitus with complication, with long- term current use of insulin Avni Holley DO Sep 18, 2016 16:06
[2016-09-18] MEDS: FUROSEMIDE 40 MG TAB PO SCH (18:02)
[2016-09-18] MEDS: CLOPIDOGREL 75 MG TAB PO SCH (18:03)
[2016-09-18] MEDS: ATORVASTATIN 40 MG TAB PO SCH (20:28)
[2016-09-18] MEDS: ACETAMINOPHEN/HYDROcodone 325 MG/5 MG TAB PO PRN (20:28)
[2016-09-19] VITALS (27 sets, daily range): BP systolic 126–154; BP diastolic 65–78; PULSE 74–104; RESP 18–20; TEMP 97.8–98.4; O2SAT 93–99
[2016-09-19] MEDS: CHLORHEXIDINE GLUCONATE 2 % 1 PACK (2 CLOTHS) TOP SCH (04:00)
[2016-09-19 05:48] LABS: P2Y12 REACTION UNITS (PRU) 159 PRU (194-418)
[2016-09-19] MEDS: HIGH DOSE INSULIN NOVOLOG SUPPLEMENTAL SCALE SQ SCH ×4 (06:24→21:00)
[2016-09-19] MEDS: FUROSEMIDE 40 MG TAB PO SCH ×2 (09:00→17:31)
[2016-09-19] MEDS: THIAMINE INJ 100 MG in SODIUM CHLORIDE 0.9% INJ 100 ML IV SCH (09:13)
[2016-09-19] MEDS: DOCUSATE SODIUM 100 MG CAP PO SCH ×2 (09:14→21:37)
[2016-09-19] MEDS: ASPIRIN 81 MG CHEW TAB PO SCH (09:14)
[2016-09-19] MEDS: CARVEDILOL 3.125 MG TAB PO SCH ×2 (09:15→21:38)
[2016-09-19] MEDS: FOLIC ACID 1 MG TAB PO SCH (09:15)
[2016-09-19] MEDS: CLOPIDOGREL 75 MG TAB PO SCH (09:15)
[2016-09-19] MEDS: MULTIVITAMIN TAB PO SCH (09:15)
[2016-09-19] MEDS: RAMIPRIL 2.5 MG CAP PO SCH (09:16)
[2016-09-19] MEDS: SODIUM CHLORIDE 0.9% FLUSH 5 ML FLUSH IV FLUSH SCH ×2 (09:16→21:38)
[2016-09-19] MEDS: PANTOPRAZOLE SODIUM 40 MG VIAL IV SCH (09:16)
[2016-09-19] MEDS: ARTIFICIAL TEARS OPTH SOLN 15 ML BTL EACH EYE SCH ×3 (09:17→17:31)
[2016-09-19] MEDS: ONDANSETRON HCL 4 MG/2 ML VIAL IV PRN (09:28)
[2016-09-19] MEDS: SENNOSIDES 8.6 MG TAB PO SCH ×2 (09:28→21:38)
--- NOTE | 2016-09-19 10:25 | PD.CARD.PN ---
Subjective Subjective Remarks Chart reviewed. The patient denies chest pain, shortness of breath, GI symptoms or bleeding. Telemetry reveals sinus rhythm with occasional PVC. Objective Medications Reviewed Vital Signs / I&O Vital Signs Date Time Temp Pulse Resp B/P Pulse Ox O2 Delivery O2 Flow Rate FiO2 09/19/16 09:00 95 09/19/16 08:18 93 21 09/19/16 08:00 98.1 82 18 144/78 99 09/19/16 08:00 95 09/19/16 08:00 99 Nasal Cannula 1.00 09/19/16 07:00 81 09/19/16 05:00 93 09/19/16 04:11 98.4 104 20 154/75 97 09/19/16 04:10 97 Nasal Cannula 1.00 09/19/16 04:00 104 09/19/16 03:00 84 09/19/16 02:00 88 09/19/16 01:00 81 09/19/16 00:00 83 09/18/16 23:05 97 Nasal Cannula 1.00 09/18/16 23:05 98.9 86 20 134/73 97 09/18/16 23:00 99 09/18/16 22:00 91 09/18/16 21:30 22 09/18/16 21:00 93 09/18/16 20:39 96 09/18/16 20:00 93 09/18/16 19:40 98.9 93 20 138/70 94 09/18/16 19:40 Room Air 09/18/16 19:00 93 09/18/16 18:00 96 09/18/16 17:00 94 09/18/16 16:00 93 09/18/16 16:00 98.0 93 20 132/71 96 09/18/16 16:00 96 Nasal Cannula 1.00 09/18/16 15:00 91 09/18/16 14:00 90 09/18/16 13:00 92 09/18/16 12:27 98.1 91 23 130/67 97 09/18/16 12:00 97 Nasal Cannula 1.00 09/18/16 11:56 91 09/18/16 11:00 94 09/18/16 10:51 96 Nasal Cannula 1.00 I/O 09/18/16 09/18/16 09/18/16 09/19/1617 2/4/17 07:00 15:00 23:00 07:00 15:00 23:00 Intake Total 1909 ml 240 ml Output Total 700 ml 900 ml Balance 1209 ml -660 ml Intake Oral 960 ml 240 ml IV Total 949 ml Output Urine Total 700 ml 900 ml Physical Exam GENERAL: Overweight, well-nourished, well-developed patient in no apparent distress. SKIN: Warm and dry. NECK: JVD normal - less than or equal to 5 cm H20. CARDIOVASCULAR: Regular rate and rhythm without murmurs, gallops, or rubs. RESPIRATORY: Normal breath sounds - equal bilaterally. No accessory muscle use. No wheezes, rales or rubs. PERIPHERY: No cyanosis, or edema. Laboratory Laboratory Tests Test 09/19/16 04:30 Platelet Function P2Y12 React 159 PRU Units Imaging Reviewed Assessment and Plan Assessment and Plan Problems: Acute ST elevation CO with ventricular fibrillation arreststent to the LAD with multivessel coronary disease and significant left ventricular dysfunction. Hypertension Hyperlipidemia Obesity Recommendations: Continue beta blockers and statins. The statins do need to be increased as tolerated -I will leave this to the primary service. Potassium repletion given diureticsthe patient will need follow-up lab work. No heavy exertion DVT prophylaxis Statins Weight loss The patient has an echocardiogram pending. If the ejection fraction is under 35 % he will need a LifeVest temporarily before being sent to rehabilitation. He will eventually follow-up with Dr. Forbes. I will be available if needed. All questions were answered. Min Rich MD Sep 19, 2016 10:25
[2016-09-19] MEDS: POTASSIUM CHLORIDE 20 MEQ CONTROLLED RELEASE TAB PO SCH ×2 (11:04→21:37)
[2016-09-19] MEDS: FERROUS SULFATE 325 MG (65 MG ELEMENTAL IRON) TAB PO SCH ×2 (11:04→17:31)
--- NOTE | 2016-09-19 11:49 | HHI.PR ---
Subjective Remarks Pt had some nausea this AM which resolved with zofran. Pt denies CP or SOB. Objective Vitals Vital Signs Date Time Temp Pulse Resp B/P Pulse Ox O2 Delivery O2 Flow Rate FiO2 09/19/16 10:00 87 09/19/16 09:00 95 09/19/16 08:18 93 21 09/19/16 08:00 98.1 82 18 144/78 99 09/19/16 08:00 95 09/19/16 08:00 99 Nasal Cannula 1.00 09/19/16 07:00 81 09/19/16 05:00 93 09/19/16 04:11 98.4 104 20 154/75 97 09/19/16 04:10 97 Nasal Cannula 1.00 09/19/16 04:00 104 09/19/16 03:00 84 09/19/16 02:00 88 09/19/16 01:00 81 09/19/16 00:00 83 09/18/16 23:05 97 Nasal Cannula 1.00 09/18/16 23:05 98.9 86 20 134/73 97 09/18/16 23:00 99 09/18/16 22:00 91 09/18/16 21:30 22 09/18/16 21:00 93 09/18/16 20:39 96 09/18/16 20:00 93 09/18/16 19:40 98.9 93 20 138/70 94 09/18/16 19:40 Room Air 09/18/16 19:00 93 09/18/16 18:00 96 09/18/16 17:00 94 09/18/16 16:00 93 09/18/16 16:00 98.0 93 20 132/71 96 09/18/16 16:00 96 Nasal Cannula 1.00 09/18/16 15:00 91 09/18/16 14:00 90 09/18/16 13:00 92 09/18/16 12:27 98.1 91 23 130/67 97 09/18/16 12:00 97 Nasal Cannula 1.00 09/18/16 11:56 91 09/18/16 09/18/16 09/19/16 15:00 23:00 07:00 Intake Total 240 ml Output Total 900 ml Balance -660 ml Intake Oral 240 ml Output Urine Total 900 ml Result Diagram: 09/18/16 0650 09/18/16 0650 Imaging Last Impressions Chest X-Ray 09/16/16 0600 Signed Impressions: Service Date/Time: Friday, September 16, 2016 04:57 - CONCLUSION: 1. Endotracheal tube and nasogastric tube out. 2. No significant change perihilar airspace disease. Beka Mayorga MD Maxillofacial CT 09/14/16 0000 Signed Impressions: Service Date/Time: Wednesday, September 14, 2016 11:52 - CONCLUSION: No acute bony injury Vasquez Gonzalez MD Head CT 09/14/16 0000 Signed Impressions: Service Date/Time: Wednesday, September 14, 2016 11:52 - CONCLUSION: Normal examination. Vasquez Gonzalez MD Cervical Spine CT 09/14/16 0000 Signed Impressions: Service Date/Time: Wednesday, September 14, 2016 11:52 - CONCLUSION: Degenerative change. No acute bony injury. Vasquez Gonzalez MD Objective Remarks GENERAL: This is a well-nourished, well-developed patient, in no apparent distress. CARDIOVASCULAR: Regular rate and rhythm without murmurs, gallops, or rubs. RESPIRATORY: Clear to auscultation. Breath sounds equal bilaterally. No wheezes , rales, or rhonchi. GASTROINTESTINAL: Abdomen soft, non-tender, nondistended. Normal active bowel sounds MUSCULOSKELETAL: Extremities without clubbing, cyanosis, or edema. NEURO: Alert & Oriented x4 to person, place, time, situation. Moves all ext x4 Date of Insertion: Sep 14, 2016 Line: Central Venous Catheter Side: Right Location: Internal, Jugular A/P Problem List: (1) CAD (coronary artery disease) Status: Acute Plan: - Pt admitted with VF arrest, s/p successful resuscitation - [facility] with Dr. Noble - multivessel disease - bare metal stent placed in mid-LAD - per Cardiology pt will require further PCI - altace, coreg, lipitor, ASA, plavix - Await repeat Echocardiogram, may need life vest per Cardiology if EF is below 35% (2) Systolic and diastolic CHF, acute on chronic Status: Acute Plan: - lasix 40mg BID - Echocardiogram (09/14/16) - Systolic, EF 25-30% - grade 1 diastolic dysfunction (3) STEMI (ST elevation myocardial infarction) Status: Acute Plan: - see above (4) Cardiac arrest with ventricular fibrillation Status: Acute Plan: - see above (5) HTN (hypertension) Status: Chronic Plan: - coreg, altace (6) DM2 (diabetes mellitus, type 2) Status: Acute Plan: - stable - SSI (7) Generalized weakness Status: Acute Plan: - PT - Pt needs SNF at the end of current hospitalization Problem Qualifiers (1) STEMI (ST elevation myocardial infarction): Qualified Code: I21.3 - ST elevation myocardial infarction (STEMI), unspecified artery (2) HTN (hypertension): Qualified Code: I10 - Essential hypertension (3) DM2 (diabetes mellitus, type 2): Qualified Code: E11.8 - Type 2 diabetes mellitus with complication, with long- term current use of insulin Avni Holley DO Sep 19, 2016 11:49
--- NOTE | 2016-09-19 13:37 | ECHLIM ---
Study Study Date:09/19/2016 STUDY CONCLUSIONS SUMMARY - Left ventricle: Wall thickness was increased in a pattern of mild LVH. Systolic function was moderately reduced. The estimated ejection fraction was in the range of 35% to 40%. Hypokinesis of the inferior myocardium. Hypokinesis of the posterior myocardium. - Aortic valve: Valve area: 1.79cm^2(VTI). Valve area: 1.64cm^2 (Vmax). If LV function is below 40, please consider prescribing an ACEI or ARB or document rationale for non-use. PROCEDURE DATA Procedure: Transthoracic echocardiography. Image quality was good. Scanning was performed from the parasternal, apical, and subcostal acoustic windows. Study completion: The patient tolerated the procedure well. Transthoracic echocardiography. M-mode, limited 2D, limited spectral Doppler, and color Doppler. Height: Height: 72in. Weight: Weight: 252.5lb. Body mass index: BMI: 34.3kg/m^2. Body surface area: BSA: 2.35m^2. CARDIAC ANATOMY LEFT VENTRICLE: Wall thickness was increased in a pattern of mild LVH. Systolic function was moderately reduced. The estimated ejection fraction was in the range of 35% to 40%. Regional wall motion abnormalities: Hypokinesis of the inferior myocardium. Hypokinesis of the posterior myocardium. AORTIC VALVE: Mildly thickened leaflets. Doppler: Valve area: 1.79cm^2(VTI). Indexed valve area: 0.76cm^2/m^2 (VTI). Valve area: 1.64cm^2 (Vmax). Indexed valve area: 0.7cm^2/m^2 (Vmax). Mean gradient: 3mm Hg (S). MITRAL VALVE: Mildly thickened leaflets, . Patient weight: 252.5lb _Ejection fraction:_ 65-75% _Fractional shortening:_ 32% up to 5Kg 5-11.5Kg 11.6-22.9Kg 23-45Kg 45-57Kg Aortic Root 7-13 <17 13-22 17-27 17-27 LA diam 6-13 <23 24-38 33-47 37-40 RVID 10-17 7-15 7-15 7-18 8-17 LVIDd 12-22 <32 24-38 33-47 37-40 LVPW 2-4 3-6 5-7 6-8 7-8 IVS 2-4 3-6 5-7 6-8 7-8 BASIC MEASUREMENTS ADULT NORMAL Left ventricle LV internal dimension, ED, chordal *56.4 mm 43-52 level, PLAX LV internal dimension, ES, chordal *46.7 mm 23-38 level, PLAX Fractional shortening, chordal level, *17 % >29 PLAX LV posterior wall thickness, ED 3.82 mm IVS/LVPW ratio, ED *3.48 <1.3 Ventricular septum Septal thickness, ED 13.3 mm Aorta Root diameter, ED 31 mm Left atrium Anterior-posterior dimension 37 mm Anterior-posterior dimension index 1.57 cm/m^2 <2.2 DOPPLER MEASUREMENTS ADULT NORMAL Aortic valve Peak velocity, S 112 cm/s Mean velocity, S 75.6 cm/s VTI, S 16.7 cm Mean gradient, S 3 mm Hg Valve area, VTI 1.79 cm^2 Valve area index, VTI 0.76 cm^2/m^2 Valve area, Vmax 1.64 cm^2 Valve area index, Vmax 0.7 cm^2/m^2 Mitral valve Peak E-wave velocity 67.1 cm/s Peak A-wave velocity 64.7 cm/s Peak E/A ratio 1 Pulmonic valve Peak velocity, S 50.4 cm/s LEGEND: Mean values are shown as u=mean value. Asterisk (*) ag values outside specified normal range. Prepared and signed by Min Rich [id number]
[2016-09-19] MEDS: ATORVASTATIN 40 MG TAB PO SCH (21:37)
[2016-09-20] VITALS (27 sets, daily range): BP systolic 124–149; BP diastolic 62–77; PULSE 76–97; RESP 16–20; TEMP 97.8–98; O2SAT 93–100
[2016-09-20] MEDS: CHLORHEXIDINE GLUCONATE 2 % 1 PACK (2 CLOTHS) TOP SCH (04:00)
[2016-09-20] MEDS: ACETAMINOPHEN 325 MG TAB PO PRN ×2 (04:50→22:04)
[2016-09-20] MEDS: HIGH DOSE INSULIN NOVOLOG SUPPLEMENTAL SCALE SQ SCH ×4 (06:14→22:03)
[2016-09-20] MEDS: ARTIFICIAL TEARS OPTH SOLN 15 ML BTL EACH EYE SCH ×3 (09:00→17:08)
[2016-09-20] MEDS: RAMIPRIL 2.5 MG CAP PO SCH (10:15)
[2016-09-20] MEDS: FUROSEMIDE 40 MG TAB PO SCH ×2 (10:15→17:08)
[2016-09-20] MEDS: FOLIC ACID 1 MG TAB PO SCH (10:15)
[2016-09-20] MEDS: MULTIVITAMIN TAB PO SCH (10:15)
[2016-09-20] MEDS: PANTOPRAZOLE SODIUM 40 MG VIAL IV SCH (10:15)
[2016-09-20] MEDS: CLOPIDOGREL 75 MG TAB PO SCH (10:15)
[2016-09-20] MEDS: POTASSIUM CHLORIDE 20 MEQ CONTROLLED RELEASE TAB PO SCH ×2 (10:15→22:03)
[2016-09-20] MEDS: THIAMINE INJ 100 MG in SODIUM CHLORIDE 0.9% INJ 100 ML IV SCH (10:15)
[2016-09-20] MEDS: CARVEDILOL 3.125 MG TAB PO SCH ×2 (10:16→22:03)
[2016-09-20] MEDS: ASPIRIN 81 MG CHEW TAB PO SCH (10:16)
[2016-09-20] MEDS: SODIUM CHLORIDE 0.9% FLUSH 5 ML FLUSH IV FLUSH SCH ×2 (10:16→22:09)
[2016-09-20] MEDS: SENNOSIDES 8.6 MG TAB PO SCH ×2 (10:16→21:00)
[2016-09-20] MEDS: DOCUSATE SODIUM 100 MG CAP PO SCH ×2 (10:16→21:00)
[2016-09-20] MEDS: FERROUS SULFATE 325 MG (65 MG ELEMENTAL IRON) TAB PO SCH ×2 (11:38→17:00)
[2016-09-20] MEDS ORDERED: FURO40TA PO (16:22)
[2016-09-20] MEDS ORDERED: HYDR-3516 PO (16:22)
--- NOTE | 2016-09-20 16:26 | HHI.DS ---
Discharge Summary Admission Date Sep 14, 2016 at 12:24 Discharge Date: Sep 21, 2016 Admitting Diagnosis STEMI, post vfib arrest (1) CAD (coronary artery disease) Diagnosis: Principal (2) Systolic and diastolic CHF, acute on chronic Diagnosis: Principal (3) STEMI (ST elevation myocardial infarction) (4) Cardiac arrest with ventricular fibrillation Diagnosis: Principal (5) HTN (hypertension) Diagnosis: Secondary (6) DM2 (diabetes mellitus, type 2) Diagnosis: Secondary (7) Generalized weakness Diagnosis: Secondary Consultants Dr. Francisco Noble, Cardiology Procedures - Pt admitted with VF arrest, s/p successful resuscitation - [facility] with Dr. Noble - multivessel disease - bare metal stent placed in mid-LAD CBC/BMP: 09/18/16 0650 09/18/16 0650 Significant Findings Laboratory Tests Test 09/18/16 09/19/16 06:50 04:30 Red Blood Count 3.66 MIL/MM3 (4.50-5.90) Hemoglobin 10.3 GM/DL (13.0-17.0) Hematocrit 29.9 % (39.0-51.0) Red Cell Distribution Width 20.2 % (11.6-17.2) Estimat Glomerular Filtration 78 ML/MIN (>89) Rate Random Glucose 196 MG/DL (74-106) Calcium Level 8.4 MG/DL (8.5-10.1) Platelet Function P2Y12 React 159 PRU Units (194-418) Imaging Last Impressions Chest X-Ray 09/16/16 0600 Signed Impressions: Service Date/Time: Friday, September 16, 2016 04:57 - CONCLUSION: 1. Endotracheal tube and nasogastric tube out. 2. No significant change perihilar airspace disease. Beka Mayorga MD Maxillofacial CT 09/14/16 0000 Signed Impressions: Service Date/Time: Wednesday, September 14, 2016 11:52 - CONCLUSION: No acute bony injury Vasquez Gonzalez MD Head CT 09/14/16 0000 Signed Impressions: Service Date/Time: Wednesday, September 14, 2016 11:52 - CONCLUSION: Normal examination. Vasquez Gonzalez MD Cervical Spine CT 09/14/16 0000 Signed Impressions: Service Date/Time: Wednesday, September 14, 2016 11:52 - CONCLUSION: Degenerative change. No acute bony injury. Vasquez Gonzalez MD PE at Discharge GENERAL: This is a well-nourished, well-developed patient, in no apparent distress. CARDIOVASCULAR: Regular rate and rhythm without murmurs, gallops, or rubs. RESPIRATORY: Clear to auscultation. Breath sounds equal bilaterally. No wheezes , rales, or rhonchi. GASTROINTESTINAL: Abdomen soft, non-tender, nondistended. Normal active bowel sounds MUSCULOSKELETAL: Extremities without clubbing, cyanosis, or edema. NEURO: Alert & Oriented x4 to person, place, time, situation. Moves all ext x4 Hospital Course (1) CAD (coronary artery disease) Status: Acute Plan: - Pt admitted with VF arrest, s/p successful resuscitation - [facility] with Dr. Noble - multivessel disease - bare metal stent placed in mid-LAD - per Cardiology pt will require further PCI - altace, coreg, lipitor, ASA, plavix - Repeat Echocardigram (09/19/16) - EF 35-40% - hypokinesis of inferior myocardium (2) Systolic and diastolic CHF, acute on chronic Status: Acute Plan: - lasix 40mg BID - Echocardiogram (09/14/16) - Systolic, EF 25-30% - grade 1 diastolic dysfunction - Repeat Echocardigram (09/19/16) - EF 35-40% - hypokinesis of inferior myocardium (3) STEMI (ST elevation myocardial infarction) Status: Acute Plan: - see above (4) Cardiac arrest with ventricular fibrillation Status: Acute Plan: - see above (5) HTN (hypertension) Status: Chronic Plan: - coreg, altace (6) DM2 (diabetes mellitus, type 2) Status: Acute Plan: - stable - SSI (7) Generalized weakness Status: Acute Plan: - discharge to SNF - see discharge orders Pt Condition on Discharge: Stable Discharge Disposition: Discharge to SNF Discharge Instructions DIET: Follow Instructions for: Heart Healthy Diet, Diabetic Diet Activities you can perform: Weight Bearing as Vic Follow up Referrals: Cardiology - [address] Francisco Noble New Medications: Glimepiride (Amaryl) 1 Mg Tab 1 MG PO BID Take with breakfast or first main meal Blood Sugar Management #60 Ref 0 TAB Atorvastatin (Lipitor) 40 Mg Tab 80 MG PO HS cad Days 30 Ref 0 TAB Carvedilol (Coreg) 3.125 Mg Tab 3.125 MG PO BID cad Days 30 Ref 0 TAB Clopidogrel (Plavix) 75 Mg Tab 75 MG PO DAILY cad Days 30 Ref 0 TAB Docusate Sodium (Dok) 100 Mg Cap 100 MG PO BID narcotics Days 30 Ref 0 CAP Ferrous Sulfate (Ferrous Sulfate) 325 Mg Tab 325 MG PO DAILY anemia Days 30 Ref 0 TAB Folic Acid (Folate) 1 Mg Tab 1 MG PO DAILY nutrition Days 90 Ref 0 TAB Hydrocodone-Acetaminophen (Hydrocodone-Acetaminophen) 5-325 mg Tab 1 TAB PO Q4H PRN pain #20 Ref 0 TAB Insulin Aspart Inj (Novolog Inj) 100 Unit/Ml Inj 1 UNITS SQ ACHS SLIDING SCALE DM2 Days 30 Ref 0 INJECTION Ramipril (Ramipril) 2.5 Mg Cap 2.5 MG PO DAILY cad Days 30 Ref 0 CAP ([Artificial Tears Opth Soln]) 300 DROP/15 ML SOLN 1 DROP EACH EYE TID dry eyes Days 30 BOTTLE ([Aspirin Chew]) 81 MG CHEW 81 MG PO DAILY cad Days 30 Ref 0 TAB.CHEW Changed Medications: Furosemide (Furosemide) 40 Mg Tab 40 MG PO BID cardiomyopathy #30 Ref 0 TAB (Changed from: DAILY) Discontinued Medications: Atorvastatin (Atorvastatin) 20 Mg Tab 20 MG PO HS Cholesterol Management #30 Ref 0 TAB Carvedilol (Coreg) 12.5 Mg Tab 18.75 MG PO BID #60 Ref 0 TAB Insulin Aspart Inj (Novolog Flexpen Inj) 300 Unit/3 Ml Pen 15 UNITS SQ TIDAC Blood Sugar Management #1 Ref 0 PEN Insulin Degludec Inj (Tresiba Flextouch Pen Inj) 300 unit/3 ML Pen 60 UNITS SQ HS Blood Sugar Management #15 Ref 0 ML Lisinopril (Lisinopril) 10 Mg Tab 10 MG PO DAILY #30 Ref 0 TAB Metolazone (Metolazone) 5 Mg Tab 5 MG PO MoWeFr #30 Ref 0 TAB Avni Holley DO Sep 20, 2016 16:26
--- NOTE | 2016-09-20 16:34 | HHI.FF ---
Face to Face Verification Diagnosis: (1) HTN (hypertension) (2) Systolic and diastolic CHF, acute on chronic (3) DM2 (diabetes mellitus, type 2) (4) Generalized weakness (5) CAD (coronary artery disease) (6) STEMI (ST elevation myocardial infarction) (7) Cardiac arrest with ventricular fibrillation Physical Therapy Order: Evaluate and Treat, Improve ambulation, Strength and gait training Home Health Nursing Order: Medical education Signs/symptoms of disease process Medication education-adverse effect Nursing assessment with vital signs I have seen patient Sean Lin on 09/20/16. My clinical findings support the need for the requested home health care services because: Ltd mobility - disease progression Deconditioned w/ increased weakness Med compliance is questionable Need for psychosocial assistance I certify that my clinical findings support that this patient is homebound because: Post-op weakness Unsafe to leave home unassisted Need for psychosocial assistance Unable to use public transportation Avni Holley DO Sep 20, 2016 16:34
[2016-09-20] MEDS: ATORVASTATIN 40 MG TAB PO SCH (22:03)
[2016-09-21] VITALS (11 sets, daily range): BP systolic 131–141; BP diastolic 70–76; PULSE 77–94; RESP 18–20; TEMP 97.9–98.3; O2SAT 96–97
[2016-09-21] MEDS: CHLORHEXIDINE GLUCONATE 2 % 1 PACK (2 CLOTHS) TOP SCH (04:00)
[2016-09-21] MEDS: HIGH DOSE INSULIN NOVOLOG SUPPLEMENTAL SCALE SQ SCH (05:56)
--- NOTE | 2016-09-21 07:38 | PD.CARD.PN ---
Subjective Subjective Remarks c/o insomnia Objective Vital Signs / I&O Vital Signs Date Time Temp Pulse Resp B/P Pulse Ox O2 Delivery O2 Flow Rate FiO2 09/21/16 06:00 77 09/21/16 05:00 82 09/21/16 04:00 89 09/21/16 03:01 96 Room Air 09/21/16 03:01 98.3 93 20 141/76 96 09/21/16 03:00 94 09/21/16 02:00 89 09/21/16 01:00 91 09/21/16 00:00 94 09/20/16 23:30 98.0 84 20 138/68 94 09/20/16 23:30 94 Room Air 09/20/16 23:00 96 09/20/16 22:00 90 09/20/16 21:00 92 09/20/16 20:00 90 09/20/16 19:20 98.0 90 20 124/62 98 09/20/16 19:20 98 Room Air 09/20/16 19:00 88 09/20/16 17:44 83 09/20/16 16:38 85 09/20/16 15:00 97.9 84 18 135/65 93 09/20/16 15:00 95 Room Air 09/20/16 15:00 85 09/20/16 14:00 88 09/20/16 13:00 78 09/20/16 12:00 85 09/20/16 11:00 95 Room Air 09/20/16 11:00 86 09/20/16 10:37 96 21 09/20/16 10:00 87 09/20/16 09:00 78 09/20/16 08:00 78 I/O 09/20/16 09/20/16 09/20/16 09/21/16 09/21/16 09/21/16 07:00 15:00 23:00 07:00 15:00 23:00 Intake Total 240 ml 820 ml 240 ml Output Total 600 ml 1301 ml Balance -360 ml -481 ml 240 ml Intake Oral 240 ml 720 ml 240 ml IV Total 100 ml Output Urine Total 600 ml 1300 ml Stool Total 1 ml # Voids 3 Physical Exam GENERAL: Well-nourished, well-developed patient in no apparent distress. NECK: No JVD. No carotid bruit. CARDIOVASCULAR: Regular rate and rhythm. S1/S2 no murmur, rub, or gallop. RESPIRATORY: No accessory muscle use. Clear to auscultation. Breath sounds equal bilaterally. GASTROINTESTINAL: Abdomen soft, non-tender, nondistended. MUSCULOSKELETAL: Extremities without clubbing, cyanosis, or edema. Assessment and Plan Problem List: (1) Cardiac arrest (2) STEMI (ST elevation myocardial infarction) Assessment and Plan CAD- s/p PCI LAD with residual disease to LCx and RCA which will be considered for staged procedure in the future and being medically managed. Cont ASA/ Brilinta. EF 35 to 40% F/U one week in our office Problem Qualifiers (1) STEMI (ST elevation myocardial infarction): Qualified Code: I21.3 - ST elevation myocardial infarction (STEMI), unspecified artery David Hollis Sep 21, 2016 07:38
[2016-09-21] MEDS: CARVEDILOL 3.125 MG TAB PO SCH (08:51)
[2016-09-21] MEDS: ASPIRIN 81 MG CHEW TAB PO SCH (08:51)
[2016-09-21] MEDS: ARTIFICIAL TEARS OPTH SOLN 15 ML BTL EACH EYE SCH (08:51)
[2016-09-21] MEDS: FUROSEMIDE 40 MG TAB PO SCH (08:51)
[2016-09-21] MEDS: DOCUSATE SODIUM 100 MG CAP PO SCH (08:51)
[2016-09-21] MEDS: PANTOPRAZOLE SODIUM 40 MG VIAL IV SCH (08:51)
[2016-09-21] MEDS: CLOPIDOGREL 75 MG TAB PO SCH (08:51)
[2016-09-21] MEDS: FOLIC ACID 1 MG TAB PO SCH (08:51)
[2016-09-21] MEDS: SENNOSIDES 8.6 MG TAB PO SCH (08:52)
[2016-09-21] MEDS: POTASSIUM CHLORIDE 20 MEQ CONTROLLED RELEASE TAB PO SCH (08:52)
[2016-09-21] MEDS: MULTIVITAMIN TAB PO SCH (08:52)
[2016-09-21] MEDS: RAMIPRIL 2.5 MG CAP PO SCH (08:52)
[2016-09-21] MEDS: SODIUM CHLORIDE 0.9% FLUSH 5 ML FLUSH IV FLUSH SCH (08:53)
[2016-09-21] MEDS: THIAMINE INJ 100 MG in SODIUM CHLORIDE 0.9% INJ 100 ML IV SCH (08:56)
[2016-09-21] MEDS ORDERED: CARV3.125 PO (10:09)
[2016-09-21] MEDS ORDERED: Artificial Tears Opth Soln EACH EYE (10:09)
[2016-09-21] MEDS ORDERED: FOLI1TAB4 PO (10:09)
[2016-09-21] MEDS ORDERED: Aspirin Chew PO (10:09)
[2016-09-21] MEDS ORDERED: GLIM1 PO (10:09)
[2016-09-21] MEDS ORDERED: DOCU1CAP39 PO (10:09)
[2016-09-21] MEDS ORDERED: PLAV75TA29 PO (10:09)
[2016-09-21] MEDS ORDERED: FERR325T PO (10:09)
[2016-09-21] MEDS ORDERED: RAMI2.5C PO (10:09)
[2016-09-21] MEDS ORDERED: LIPI40TA PO (10:10)
== END 2016-09-21 12:09 | disposition home health service (06) | DRG 270 ==
LOC: NEPE 11:10 → EDBD 12:24 → MERGE 12:24 → HCVR 12:24 → HCPC 09-17 14:04
PROVIDERS: ADMIT Internal Medicine; ATTEND Internal Medicine
PROC: 5A02210 Assistance with Cardiac Output using Balloon Pump, Continuous (ICD-10-PCS; principal; 2016-09-14)
PROC: 02703DZ Dilation of Coronary Artery, One Artery with Intraluminal Device, Percutaneous Approach (ICD-10-PCS; 2016-09-14)
PROC: 5A1945Z Respiratory Ventilation, 24-96 Consecutive Hours (ICD-10-PCS; 2016-09-14)
PROC: 4A023N7 Measurement of Cardiac Sampling and Pressure, Left Heart, Percutaneous Approach (ICD-10-PCS; 2016-09-14)
PROC: B2111ZZ Fluoroscopy of Multiple Coronary Arteries using Low Osmolar Contrast (ICD-10-PCS; 2016-09-14)
PROC: B2151ZZ Fluoroscopy of Left Heart using Low Osmolar Contrast (ICD-10-PCS; 2016-09-14)
PROC: 0BH17EZ Insertion of Endotracheal Airway into Trachea, Via Natural or Artificial Opening (ICD-10-PCS; 2016-09-14)
PROC: 03HY32Z Insertion of Monitoring Device into Upper Artery, Percutaneous Approach (ICD-10-PCS; 2016-09-14)
PROC: 02HV33Z Insertion of Infusion Device into Superior Vena Cava, Percutaneous Approach (ICD-10-PCS; 2016-09-14)
DX: I21.3 ST elevation (STEMI) myocardial infarction of unspecified site (principal); I49.01 Ventricular fibrillation; J96.00 Acute respiratory failure, unspecified whether with hypoxia or hypercapnia; I50.43 Acute on chronic combined systolic (congestive) and diastolic (congestive) heart failure; N17.9 Acute kidney failure, unspecified; E11.65 Type 2 diabetes mellitus with hyperglycemia; D69.6 Thrombocytopenia, unspecified; I95.9 Hypotension, unspecified; I46.9 Cardiac arrest, cause unspecified; I25.10 Atherosclerotic heart disease of native coronary artery without angina pectoris; I25.5 Ischemic cardiomyopathy; D72.829 Elevated white blood cell count, unspecified; D64.9 Anemia, unspecified; E78.5 Hyperlipidemia, unspecified; M19.90 Unspecified osteoarthritis, unspecified site; I10 Essential (primary) hypertension; E66.9 Obesity, unspecified; R11.0 Nausea; Z68.33 Body mass index [BMI] 33.0-33.9, adult; Z79.4 Long term (current) use of insulin
CPT/HCPCS: 31500; 33967; 36556; 36600; 51702; 70450; 70486; 71010; 72125; 80048; 80053; 80061; 82310; 82435; 82550; 82552; 82565; 82805; 82947; 82948; 83036; 83605; 83735; 84100; 84132; 84295; 84443; 84484; 84520; 85014; 85025; 85027; 85576; 85610; 85730; 87641; 92941; 92950; 93005; 93306; 93308; 93458; 94002; 94003; 94150; 94640; 94664; 94668; 96365; 96375; C1725; C1769; C1876; C1887; C1893; C9113; J0171; J0282; J0330; J0583; J1170; J1644; J1815; J1817; J1940; J2270; J2370; J2405; J3010; J3411; J3475; J7030; J7060; Q9967

== ENCOUNTER 2016-11-09 07:10 | Day surgery (SDC) | payer OTHER ==
[~2016-11-09] VITALS: Ht 170.2 cm; Wt 108.9 kg
[~2016-11-09 07:10] MED LIST changes: -APIDINJ SQ; +Artificial Tears Opth Soln EACH EYE; +Aspirin Chew PO; -Blood Pressure PO; +CARV3.125 PO; -Cholesterol PO; +DOCU1CAP39 PO; +FERR325T PO; +FOLI1TAB4 PO; +FURO40TA PO; +GLIM1 PO; -GLUC1000 PO; +HYDR-3516 PO; -LANTUS2P SC; +LIPI40TA PO; +PLAV75TA29 PO; +RAMI2.5C PO
[2016-11-09 07:51] VITALS: BP 132/78; PULSE 77; RESP 18; TEMP 98; O2SAT 97
[2016-11-09] MEDS ORDERED: POTA-163 PO (07:57)
[2016-11-09] MEDS ORDERED: HEPARIN-NS/PF INJ 500 ML ONE ×2 (09:13→13:23)
[2016-11-09] MEDS ORDERED: MIDAZOLAM HCL 2 MG/2 ML VIAL ONE ×3 (09:14→13:49)
[2016-11-09] MEDS ORDERED: HEPARIN SODIUM - IV 10,000 UNITS/10 ML VIAL ONE ×2 (09:14→13:48)
[2016-11-09] MEDS ORDERED: IOHEXOL 350 MG/ML 100 ML BTL (for Cath Lab) OTHER ONE ×2 (10:30→15:52)
[2016-11-09] MEDS ORDERED: SODIUM CHLORIDE 0.9% FLUSH 10 ML FLUSH IV FLUSH PRN (10:30)
[2016-11-09] MEDS ORDERED: ATROPINE SULFATE 1 MG/ML VIAL IV PRN (10:30)
[2016-11-09] MEDS ORDERED: SODIUM CHLOR 0.9% 250 ML INJ 250 ML IV PRN (10:30)
[2016-11-09] MEDS ORDERED: METOCLOPRAMIDE HCL 10 MG/2 ML VIAL IV PRN (10:30)
[2016-11-09] MEDS ORDERED: ONDANSETRON HCL 4 MG/2 ML VIAL IV PRN (10:30)
[2016-11-09] MEDS ORDERED: MISC INFORMATION XX ONE ×3 (10:30→15:00)
--- NOTE | 2016-11-09 11:43 | MA ---
cc: CHAUNCEY FORBES MD DATE: 11/09/2016 PROCEDURE: The patient was prepped and draped in the usual fashion. A 6-sheath was inserted percutaneously into the right femoral artery. Coronary angiography was done of both the left and right systems. RESULTS: The left main coronary was normal. The left anterior descending artery demonstrated an intraluminal stent in its mid-portion which was widely patent. The left circumflex artery was a large codominant artery. It was diffusely diseased in its mid-portion as well as in the distal portions of the artery. There appeared to be no real area suitable for intervention because of the diffuse nature of the lesions. The right coronary artery was relatively small. There were several sequential stenoses in the proximal portion totaling 4 each which compromised the lumen of the artery between 75 and 90% INTERVENTION: Multiple attempts to cannulate the artery with a right guide were done using a right 4 3DR with side holes and AR-1, none of which were successful because of rather significant tortuosity of the patient's iliac anatomy making torquing the catheters very difficult and actually unsuccessful in terms of cannulating the artery. The procedure was abandoned and hemostasis was achieved with direct pressure. ASSESSMENT AND PLAN: It is anticipated that a second attempt will be made using the brachial approach, hopefully with better results with guide catheter. Chauncey Forbes MD DLW/SSB /10:27 AM /11:29 AM
[2016-11-09] MEDS ORDERED: LIDOCAINE 2% JELLY 30 ML TUBE TOP PRN (15:00)
[2016-11-09] MEDS ORDERED: MORPHINE SULFATE 4 MG/ML INJ IV PUSH PRN (15:00)
[2016-11-09] MEDS ORDERED: oxyCODONE/ACETAMINOPHEN 10 MG/325 MG TAB PO PRN (15:00)
[2016-11-09] MEDS ORDERED: BACITRACIN OINT 0.9 GM PKT TOP ONE (15:00)
[2016-11-09] MEDS ORDERED: oxyCODONE/ACETAMINOPHEN 5 MG/325 MG TAB PO PRN (15:00)
[2016-11-09] MEDS ORDERED: ACETAMINOPHEN 325 MG TAB PO PRN (15:00)
[2016-11-09] MEDS ORDERED: ISOS30TA3 PO (15:02)
--- NOTE | 2016-11-09 16:43 | MA ---
cc: EMERALD WHITE DATE 11/09/2016 PROCEDURE PERFORMED 1. Fluoroscopy with interpretation. 2. Coronary angiography. 3. Orbital rotational atherectomy of the right coronary artery. 4. Percutaneous endovascular stenting with drug-eluting stent to the proximal right coronary artery. METHOD The risks, benefits and alternatives discussed with the patient. The patient understood and consented to the procedure. The patient taken to the cardiac catheterization lab and placed on the catheterization table. The patient had prior procedure earlier today with Dr. Forbes. He has known severe coronary artery disease and was brought in for planned staged intervention. Unfortunately given his tortuosity within the iliac system, Dr. Forbes was not able to selectively cannulate the right coronary artery with a guide catheter. Since he does not perform right radial approach he asked if I could attempt a percutaneous intervention from the radial artery to avoid navigating the iliac tortuosity. The patient understood and consented to proceed with the procedure. Right wrist and right groin were prepped and draped in sterile fashion. Right wrist was anesthetized with 2% lidocaine. Right radial artery was cannulated and a 6-[place] 7 cm sheath was placed out difficulty. Right femoral vein was also accessed and a 5-[place] 11 cm sheath was placed out difficulty. CORONARY ANGIOGRAPHY Please see detailed diagnostic angiogram performed by Dr. Forbes. Right coronary artery was selectively engaged with a 6-[place] JR-5 guide catheter. Proximal right coronary has rather diffuse 80% calcific stenosis. There is a [id number] size acute marginal branch. There is a sub branch that is smaller caliber size of the acute marginal that has stenotic lesion. The distal right coronary beyond the acute marginal branch is very small caliber, diffusely diseased throughout its entire course. TEMPORARY TRANSVENOUS PACEMAKER PLACEMENT A 5-[place] balloon-tip temporary transvenous pacemaker was navigated through the right femoral venous sheath to the level of the right ventricular apex under fluoroscopic guidance. Pacing and capture was confirmed. Pacing was utilized during the procedure due to bradycardia. PERCUTANEOUS INTERVENTION After a lengthy discussion with Dr. Forbes, we decided that intervening of the proximal right coronary in an attempt to improve perfusion to the large acute marginal branch would be the best approach. The distal right coronary is too small to navigate and risk of perforation for any intervention. Right coronary was then selectively engaged with a 6-[place] JR-5 guide catheter. Heparin was administered throughout the entire procedure to maintain appropriate anticoagulation. 0.014 inch 300 cm Terumo run-through wire was navigated down the distal acute marginal branch. A 1.25 mm x 6 mm over the wire balloon was then navigated down the distal acute marginal branch. Terumo run-through wire removed. 335 cm 0.014 inches Viper wire was then navigated down the distal balloon into the marginal branch and the balloon removed. A 1.25 mm CSI atherectomy catheter was then prepped. Orbital rotational atherectomy was performed on two sequential passes at 80,000 revolutions per minute through the proximal right coronary extending into the early acute marginal branch. The 1.25 mm x 6 balloon was then navigated down the distal acute marginal branch and the Viper wire removed and the Terumo run-through wire placed again back down to the distal marginal, balloon was removed. A 2.0 x 20 mm CBA PHARMAtronic Euphora balloon was advanced down to the to proximal acute marginal branch extending in the proximal right coronary artery and deployed on two sequential inflations to 12 atmospheres. Repeat angiography showed still severe residual stenosis but YOAN III flow. A 2.5 x 22 mm RX Resolute drug-eluting stent was advanced down to the very proximal acute marginal branch extending back into the proximal right coronary and deployed. A second 2.5 x 18 mm RX Resolute drug-eluting stent was advanced at the proximal right coronary artery with minimal stent overlap and deployed. Repeat angiography showed no significant residual stenosis, YOAN-III flow. Wire guide catheter removed. CONCLUSION 1. Severe right coronary artery calcific stenosis. 2. Successful orbital rotational atherectomy, balloon angioplasty and endovascular stenting with drug-eluting stent to the proximal right coronary artery. PLAN The patient will be monitored closely for any post procedural complications. Right radial hemo band was applied. Right femoral venous sheath will be removed. Remainder of the care per Dr. Forbes. The patient is already on aspirin, statin, beta leonid and Plavix. MD PALLAVI Christiansen/SAI /2:58 PM /4:16 PM RAFAEL
[2016-11-09] MEDS ORDERED: SODIUM CHLORIDE 0.9% FLUSH 10 ML FLUSH IV FLUSH SCH (21:00)
[2016-11-10] MEDS ORDERED: ISOSORBIDE MONONITRATE 30 MG TAB PO SCH (07:00)
== END 2016-11-09 19:59 | disposition home or self-care (01) ==
LOC: HCAT 07:10 → HDIC 07:12 → HCAT 19:59
PROVIDERS: ATTEND Internal Medicine Cardiovascular Disease
DX: I25.10 Atherosclerotic heart disease of native coronary artery without angina pectoris (principal); I11.0 Hypertensive heart disease with heart failure; I50.9 Heart failure, unspecified; I25.5 Ischemic cardiomyopathy; E78.5 Hyperlipidemia, unspecified; I25.2 Old myocardial infarction
CPT/HCPCS: 33210; 85002; 85347; 92933; 93454; C1714; C1725; C1769; C1874; C1887; C1893; J1644; J2250; J3010; Q9967